=== PATIENT | male | born 1940 | race Caucasian/White ===

== ENCOUNTER 2019-06-03 15:24 | Emergency (ER) | payer MEDICARE, OTHER, SELFPAY ==
[2019-06-03 15:32] VITALS: BP 183/117; PULSE 77; RESP 16; TEMP 37.1; O2SAT 99; BMI 28.7
--- NOTE | 2019-06-03 15:48 | CT_ITS ---
WS: [id number] CT HEAD NONCONTRAST HISTORY: lightheaded TECHNIQUE: Contiguous axial imaging performed through the brain in 2.5 mm imaging. Bone and soft tiss ue windows. Sagittal and coronal reformats reviewed. All CT scans at [facility] use at ast one of these dose optimization techniques: automated exposure control; mA and/or kV adjustment pe r patient size (includes targeted exams where dose is matched to clinical indication); or iterative r econstruction. DLP: 788.23 mGy.cm COMPARISON: None available. No acute intracranial hemorrhage, midline shift or mass effect. Mild atrophy and mild chronic microvascular ischemic disease. Cantu-white matter differentiation is no rmal. There are a few small lacunar infarcts bilateral basal ganglia versus perivascular spaces. Ventricles: Normal size with no hydrocephalus. Paranasal sinuses: As visualized are clear. Mastoid air cells: Well pneumatized. Calvarium and scalp: Skull is intact with no soft tissue edema or swelling. CT/CT head wo con* [id number] IMPRESSION: 1. No acute intracranial hemorrhage. 2. 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
--- NOTE | 2019-06-03 15:48 | XR_ITS ---
WS: [id number] Portable AP upright chest, 06/03/2019 Clinical Data: sob Comparison: Portable chest, 01/05/2019. Findings: No nodules, masses or effusions are seen. The heart is normal. The pulmonary vascularity is not remarkable. No pneumonia or pneumothorax is present. The aortic arch shows mild calcification XR/XR chest 1V portable [id number] Impression: Atherosclerosis.
--- NOTE | 2019-06-03 15:48 | ECG_ITS ---
Measurements Intervals [place] Rate: 69 P: 52 AK: 165 QRS: 14 QRSD: 81 T: 45 QT: 372 QTc: 399 SINUS RHYTHM Compared to ECG 01/05/2019 18:31:02 No significant changes Electronically Signed On 06-04-2019 9:01:40 CDT by Deshaun Alva M.D. [id number]
--- NOTE | 2019-06-03 15:49 | ED_ITS ---
Documented by User: MINISTERIO Joel 06/03/19 16:20 HPI - Dizziness General: Chief Complaint: Dizziness Stated Complaint: DIZZY, TINGLING, SOB Time Seen by Provider: 06/03/19 15:41 History of Present Illness: HPI Narrative: Patient arrived by walking and complains of dizziness and shortness of breath. Patient states that she come home from [facility] walk around back to the house it down the chair and felt very dizzy and started have some shortness of breath. Not short of breath presently he said he is still dizzy when he moves his head quickly. Just lost his significant other this last week and he was up in [place] a lot did not sleep very well did not eat very well. Had a on Sunday patient denies anxiety or depression does have history of high blood pressure MD elicited complaint: lightheadedness Onset (ago): minute(s) Timing: sudden onset Severity: moderate Description: room spinning and lightheadedness Exacerbating factors: movement/ambulation Relieving factors: remaining still Associated symptoms: Reports no associated symptoms and short of breath; Denies chest pain, chills, headache(s), nausea, nasal congestion or vomiting Associated neuro symptoms: Reports no associated symptoms Review of Systems Const: Denies: fever, chills or body aches Eyes: Denies: change in vision or blurry vision ENMT: Denies: throat pain or nasal congestion Card: Reports: shortness of breath on exertion (He did x1 today did not have shortness of breath on exertion coming into the ER); Denies: chest pain Resp: Reports: shortness of breath; Denies: productive cough or non-productive cough GI: Denies: abdominal pain, nausea or vomiting : Denies: difficulty urinating Musc: Denies: extremity pain Skin/Breast: Denies: rash Neuro: Reports: dizziness and other (Tingling in extremities is gone now); Denies: headache Psych: Denies: anxiety or depression Rich/Lymph: Denies: easy bruising PFSH ED PFSH: Social History Smoking and tobacco status: former smoker Physical Exam Const: COMMON NORMALS: no apparent distress, average body habitus and oriented x3 HENMT: COMMON NORMALS: normocephalic HEAD & SCALP: normal to inspection and normocephalic FACE & SINUS: normal facial exam Eye: COMMON NORMALS: conjunctivae normal GENERAL EYE: normal appearance of both eyes CONJUNCTIVA: Yes conjunctivae normal Neck/C-Spine: COMMON NORMALS: no JVD Chest: COMMONS NORMALS: inspection of chest normal Resp: COMMON NORMALS: normal respiratory effort and clear to auscultation bilaterally AUSCULTATION: clear to auscultation bilaterally Cardio: COMMON NORMALS: no JVD, regular rate and regular rhythm RATE: regular rate RHYTHM: regular rhythm GI: COMMON NORMALS: normal to inspection, nondistended, normoactive bowel sounds Extremity: COMMON NORMALS: normal to inspection and full ROM Neuro: COMMON NORMALS: oriented x3 and CN's II-XII intact bilaterally Course Vital Signs: Vital signs: Vital Signs Temperature 98.8 F 06/03/19 15:32 Pulse Rate 77 06/03/19 21:38 Respiratory Rate 20 H 06/03/19 21:38 Blood Pressure 162/84 06/03/19 21:38 Pulse Oximetry 97 06/03/19 21:38 MDM - Dizziness Lab Data: Labs: Lab Results 06/03/19 06/03/19 06/03/19 Range/Units 16:28 16:28 16:28 WBC 7.0 (4.0-10.0) 10^3/ uL RBC 4.94 (4.1-5.3) 10^6/u L Hgb 14.7 (11.7-16.6) g/dL Hct 44.7 (42.0-52.0) % MCV 90.5 (80-94) fL MCH 29.8 (28.0-34.0) pg MCHC 32.9 (30.0-36.0) g/dL RDW 12.6 (12.1-15.1) % Plt Count 318 (130-400) 10^3/c mm MPV 9.4 (7.4-10.4) fL Neut % (Auto) 59.7 % Lymph % (Auto) 25.9 % [place] % (Auto) 8.7 % Eos % (Auto) 4.8 % Baso % (Auto) 0.6 % Neut # (Auto) 4.2 (1.8-7.7) 10^3/u L Lymph # (Auto) 1.8 (0.8-4.8) 10^3/u L [place] # (Auto) 0.6 (0.2-0.9) 10^3/u L Eos # (Auto) 0.3 (0.0-0.8) 10^3/u L Baso # (Auto) 0.0 (0.0-0.1) 10^3/u L Nucleated RBC % (a uto) 0 % Nucleated RBCs # 0.0 /100WBC D-Dimer (0-0.59) ug/mIFE U Sodium 132 L (136-145) mmol/L Potassium 4.4 (3.5-5.1) mmol/L Chloride 95 L (98-107) mmol/L Carbon Dioxide 26 (22-29) mmol/L Anion Gap 15.4 (5-19) BUN 11 (8-23) mg/dL Creatinine 1.2 (0.7-1.2) mg/dL Glucose 103 (65-115) mg/dL POC Glucose (70-110) mg/dL Calculated Osmolal ity 270 L (285-295) mOsm/k g Calcium 9.5 (8.5-10.5) mg/dL Total Bilirubin 0.5 (0.15-1.2) mg/dL AST 21 (0-40) U/L ALT 15 (0-41) U/L Alkaline Phosphata se 118 (40-130) IU/L Troponin T Gen 5 n g/L 15 (0-15) ng/mL Total Protein 7.3 (6.6-8.7) g/dL Albumin 4.1 (3.5-5.2) g/dL Globulin 3.2 (1.3-4.6) g/dL 06/03/19 06/03/19 Range/Units 16:28 18:59 WBC (4.0-10.0) 10^3/ uL RBC (4.1-5.3) 10^6/u L Hgb (11.7-16.6) g/dL Hct (42.0-52.0) % MCV (80-94) fL MCH (28.0-34.0) pg MCHC (30.0-36.0) g/dL RDW (12.1-15.1) % Plt Count (130-400) 10^3/c mm MPV (7.4-10.4) fL Neut % (Auto) % Lymph % (Auto) % [place] % (Auto) % Eos % (Auto) % Baso % (Auto) % Neut # (Auto) (1.8-7.7) 10^3/u L Lymph # (Auto) (0.8-4.8) 10^3/u L [place] # (Auto) (0.2-0.9) 10^3/u L Eos # (Auto) (0.0-0.8) 10^3/u L Baso # (Auto) (0.0-0.1) 10^3/u L Nucleated RBC % (a uto) % Nucleated RBCs # /100WBC D-Dimer 0.64 H (0-0.59) ug/mIFE U Sodium (136-145) mmol/L Potassium (3.5-5.1) mmol/L Chloride (98-107) mmol/L Carbon Dioxide (22-29) mmol/L Anion Gap (5-19) BUN (8-23) mg/dL Creatinine (0.7-1.2) mg/dL Glucose (65-115) mg/dL POC Glucose 99 (70-110) mg/dL Calculated Osmolal ity (285-295) mOsm/k g Calcium (8.5-10.5) mg/dL Total Bilirubin (0.15-1.2) mg/dL AST (0-40) U/L ALT (0-41) U/L Alkaline Phosphata se (40-130) IU/L Troponin T Gen 5 n g/L (0-15) ng/mL Total Protein (6.6-8.7) g/dL Albumin (3.5-5.2) g/dL Globulin (1.3-4.6) g/dL EKG Data^: EKG 1: EKG interpretation date: 06/03/19 EKG interpretation time: 16:07 Interpretation: DAVIDAR, 69bpm Discharge Plan Discharge Patient Disposition: Home, Self-Care Clinical Impression: Pneumonitis Condition: Stable Prescriptions: New doxycycline hyclate 100 mg tablet 100 mg PO Q12H 10 Days Qty: 20 RF: 0 No Action atorvastatin 80 mg tablet 40 mg PO DAILY RF: 0 clonidine HCl 0.1 mg tablet 0.1 mg PO Q2H PRN (Reason: Blood Pressure) RF: 0 cetirizine 10 mg tablet 10 mg PO DAILY PRN (Reason: Allergy Symptoms) RF: 0 triamcinolone acetonide 0.1 % cream 1 applic topical DAILY RF: 0 ranitidine HCl 150 mg tablet 150 mg PO BID RF: 0 Toprol XL 25 mg tablet extended release 24 hr 25 mg PO DAILY RF: 0 clobetasol 0.05 % ointment 1 applic TOPICAL BEDTIME RF: 0 fluticasone propionate 50 mcg/actuation spray,suspension 1 spray INTRANASAL DAILY PRN (Reason: Nasal Congestion) RF: 0 valsartan 160 mg tablet 80 mg PO DAILY RF: 0 Discharge Orders: Discharge Order (Routine); Ordered 06/03/19 Ordered By: Clare Mason Referrals: Steve Velasquez MD [Primary Care Provider] - Activity Restrictions/Additional Instructions: Return to the emergency department for worsening shortness of breath, continued dizziness/lightheadedness, feeling like you might pass out, chest pain, difficulty breathing, fevers greater than 100.4, or any other concerns you may have. Discharge Date/Time: 06/03/19 21:35 Coding Level of Care Code ED Foreign Language Instructor for Chg Fwd Exam Comprehensive Documented by User: QUIN Kamara 06/03/19 21:58 HPI - Dizziness General: Chief Complaint: Dizziness Stated Complaint: DIZZY, TINGLING, SOB Time Seen by Provider: 06/03/19 15:41 PFS ED PFSH: Social History Smoking and tobacco status: former smoker Course Vital Signs: Vital signs: Vital Signs Temperature 98.8 F 06/03/19 15:32 Pulse Rate 77 06/03/19 21:38 Respiratory Rate 20 H 06/03/19 21:38 Blood Pressure 162/84 06/03/19 21:38 Pulse Oximetry 97 06/03/19 21:38 MDM - Dizziness MDM Narrative: Medical decision making narrative: Care was received from MINISTERIO Oconnell. Patient is a 79-year-old male who presents to ED today with complaints of an episode of dizziness and shortness of breath while he was at home. Patient was at rest when both of these occurred. Upon my examination patient states the shortness of breath has improved but feels slightly dizzy. He was treated with a liter of fluids and meclizine which completely alleviated his dizziness. Upon ambulation trial he states he was not dizzy at all however did experience shortness of breath that he states was very abnormal. Patient had an age-appropriate d-dimer however seems very concerned about his shortness of breath. CXR was normal. We spoke in depth about proceeding with a CTA angiogram to definitively rule out PE-patient has decided he wishes to proceed with this. This was indeed negative for pulmonary embolus. Patient's lab work including troponin were normal. His head CT is normal. Initial EKG showed sinus rhythm. Repeat EKG showed sinus rhythm with occasional missed beat. Patient tells me he has had these previously and has seen cardiology previously for Holter monitor/event monitors. Spoke with Dr. Machado regarding EKG findings who feels patient is stable to follow-up with his PCP. CTA scan did show some pneumonitis-when asked patient does state he has had a cough over the past 2 days that is similar to when he has been diagnosed with bronchitis/pneumonia previously. His vital signs are completely stable. We will go ahead and place him on antibiotics and recommend he follow-up with his primary care provider as soon as possible. Return to ED precautions given. Lab Data: Labs: Lab Results 06/03/19 06/03/19 06/03/19 Range/Units 16:28 16:28 16:28 WBC 7.0 (4.0-10.0) 10^3/ uL RBC 4.94 (4.1-5.3) 10^6/u L Hgb 14.7 (11.7-16.6) g/dL Hct 44.7 (42.0-52.0) % MCV 90.5 (80-94) fL MCH 29.8 (28.0-34.0) pg MCHC 32.9 (30.0-36.0) g/dL RDW 12.6 (12.1-15.1) % Plt Count 318 (130-400) 10^3/c mm MPV 9.4 (7.4-10.4) fL Neut % (Auto) 59.7 % Lymph % (Auto) 25.9 % [place] % (Auto) 8.7 % Eos % (Auto) 4.8 % Baso % (Auto) 0.6 % Neut # (Auto) 4.2 (1.8-7.7) 10^3/u L Lymph # (Auto) 1.8 (0.8-4.8) 10^3/u L [place] # (Auto) 0.6 (0.2-0.9) 10^3/u L Eos # (Auto) 0.3 (0.0-0.8) 10^3/u L Baso # (Auto) 0.0 (0.0-0.1) 10^3/u L Nucleated RBC % (a uto) 0 % Nucleated RBCs # 0.0 /100WBC D-Dimer (0-0.59) ug/mIFE U Sodium 132 L (136-145) mmol/L Potassium 4.4 (3.5-5.1) mmol/L Chloride 95 L (98-107) mmol/L Carbon Dioxide 26 (22-29) mmol/L Anion Gap 15.4 (5-19) BUN 11 (8-23) mg/dL Creatinine 1.2 (0.7-1.2) mg/dL Glucose 103 (65-115) mg/dL POC Glucose (70-110) mg/dL Calculated Osmolal ity 270 L (285-295) mOsm/k g Calcium 9.5 (8.5-10.5) mg/dL Total Bilirubin 0.5 (0.15-1.2) mg/dL AST 21 (0-40) U/L ALT 15 (0-41) U/L Alkaline Phosphata se 118 (40-130) IU/L Troponin T Gen 5 n g/L 15 (0-15) ng/mL Total Protein 7.3 (6.6-8.7) g/dL Albumin 4.1 (3.5-5.2) g/dL Globulin 3.2 (1.3-4.6) g/dL 06/03/19 06/03/19 Range/Units 16:28 18:59 WBC (4.0-10.0) 10^3/ uL RBC (4.1-5.3) 10^6/u L Hgb (11.7-16.6) g/dL Hct (42.0-52.0) % MCV (80-94) fL MCH (28.0-34.0) pg MCHC (30.0-36.0) g/dL RDW (12.1-15.1) % Plt Count (130-400) 10^3/c mm MPV (7.4-10.4) fL Neut % (Auto) % Lymph % (Auto) % [place] % (Auto) % Eos % (Auto) % Baso % (Auto) % Neut # (Auto) (1.8-7.7) 10^3/u L Lymph # (Auto) (0.8-4.8) 10^3/u L [place] # (Auto) (0.2-0.9) 10^3/u L Eos # (Auto) (0.0-0.8) 10^3/u L Baso # (Auto) (0.0-0.1) 10^3/u L Nucleated RBC % (a uto) % Nucleated RBCs # /100WBC D-Dimer 0.64 H (0-0.59) ug/mIFE U Sodium (136-145) mmol/L Potassium (3.5-5.1) mmol/L Chloride (98-107) mmol/L Carbon Dioxide (22-29) mmol/L Anion Gap (5-19) BUN (8-23) mg/dL Creatinine (0.7-1.2) mg/dL Glucose (65-115) mg/dL POC Glucose 99 (70-110) mg/dL Calculated Osmolal ity (285-295) mOsm/k g Calcium (8.5-10.5) mg/dL Total Bilirubin (0.15-1.2) mg/dL AST (0-40) U/L ALT (0-41) U/L Alkaline Phosphata se (40-130) IU/L Troponin T Gen 5 n g/L (0-15) ng/mL Total Protein (6.6-8.7) g/dL Albumin (3.5-5.2) g/dL Globulin (1.3-4.6) g/dL Imaging Data^: CTA angio: Radiologist's impression: [address] [place] [address] CT Scan Report Signed Patient: Mukund Vivar Unit #: [id number] : [id number] Age/Sex: 79 / M ADM Date: 06/03/19 Loc: ER Room/Bed: Attending Dr: Ordering Provider/Ordering MD: Clare Mason Date of Service: 06/03/19 Procedure(s): CT angio chest PE protcl [id number] Accession Number(s): [id number] Report Number: [id number] PROCEDURE INFORMATION: Exam: CT Angiography Chest With Contrast Exam date and time: 06/03/2019 7:59 PM Age: 79 years old Clinical indication: Shortness of breath; Additional info: SOB TECHNIQUE: Imaging protocol: Computed tomographic angiography of the chest with intravenous contrast. 3D rendering: MIP and/or 3D reconstructed images were created by the technologist. Total DLP: 623.54 mGy-cm Radiation optimization: All CT scans at this facility use at least one of these dose optimization techniques: automated exposure control; mA and/or kV adjustment per patient size (includes targeted exams where dose is matched to clinical indication); or iterative reconstruction. Contrast material: VISI; Contrast volume: 95 ml; Contrast route: IV; COMPARISON: CR XR chest 1V portable [id number] 06/03/2019 3:59 PM FINDINGS: Pulmonary arteries: There is no pulmonary embolus. Aorta: Unremarkable. No aortic aneurysm. No aortic dissection. Lungs: There is some mild pneumonitis with a tree-in-bud appearance. There is also mild peribronchial thickening and ground-glass opacity in the lungs. This is greatest in the lower lobes. No dense lobar consolidation. There is a 3.5 mm ground-glass subpleural nodule right lower lobe image 36. Pleural space: Unremarkable. No pneumothorax. No pleural effusion. Heart: Unremarkable. No cardiomegaly. No pericardial effusion. Mediastinum: A moderate hiatal hernia is present. Gallbladder and bile ducts: Click left adrenalThere has been a cholecystectomy. Adrenals: There is a 1.8 cm indeterminate right adrenal nodule. Lymph nodes: Unremarkable. No enlarged lymph nodes. Bones/joints: Unremarkable. No acute fracture. Soft tissues: Unremarkable. Other findings: Calcified granulomas are noted. CT/CT angio chest PE protcl [id number] IMPRESSION: 1. There is no pulmonary embolus. 2. Mild pneumonitis and peribronchial thickening. 3. There is a 1.8 cm indeterminate right adrenal nodule. Consider 12 month follow-up adrenal CT. (Naima Rousseau, ACR White Paper, 2017) 4. There is a 3.5 mm ground-glass nodule right lower lobe.No routine follow-up is indicated. (Dionne et al., Fleischner Society, 2017) Radiation Dose CTDIVOL = (mGy): DLP = 623.54 (mGy-cm) Dictated By: Anjelica Lenz Signed By: Anjelica Lenz Signed Date/Time: 06/03/192101 DD/ 99 Discharge Plan Discharge Patient Disposition: Home, Self-Care Clinical Impression: Pneumonitis Condition: Stable Prescriptions: New doxycycline hyclate 100 mg tablet 100 mg PO Q12H 10 Days Qty: 20 RF: 0 No Action atorvastatin 80 mg tablet 40 mg PO DAILY RF: 0 clonidine HCl 0.1 mg tablet 0.1 mg PO Q2H PRN (Reason: Blood Pressure) RF: 0 cetirizine 10 mg tablet 10 mg PO DAILY PRN (Reason: Allergy Symptoms) RF: 0 triamcinolone acetonide 0.1 % cream 1 applic topical DAILY RF: 0 ranitidine HCl 150 mg tablet 150 mg PO BID RF: 0 Toprol XL 25 mg tablet extended release 24 hr 25 mg PO DAILY RF: 0 clobetasol 0.05 % ointment 1 applic TOPICAL BEDTIME RF: 0 fluticasone propionate 50 mcg/actuation spray,suspension 1 spray INTRANASAL DAILY PRN (Reason: Nasal Congestion) RF: 0 valsartan 160 mg tablet 80 mg PO DAILY RF: 0 Discharge Orders: Discharge Order (Routine); Ordered 06/03/19 Ordered By: Clare Mason Referrals: Steve Velasquez MD [Primary Care Provider] - Activity Restrictions/Additional Instructions: Return to the emergency department for worsening shortness of breath, continued dizziness/lightheadedness, feeling like you might pass out, chest pain, difficulty breathing, fevers greater than 100.4, or any other concerns you may have. Discharge Date/Time: 06/03/19 21:35 Coding Level of Care Code ED Foreign Language Instructor for Chg Fwd Exam Comprehensive
[2019-06-03 16:35] LABS: Basophils % 0.6 %; Eosinophils # 0.3 10^3/uL (0.0-0.8); Eosinophils % 4.8 %; Hematocrit 44.7 % (42.0-52.0); Hemoglobin 14.7 g/dL (11.7-16.6); Lymphocytes # 1.8 10^3/uL (0.8-4.8); Lymphocytes % 25.9 %; Mean Corpuscular HGB Conc 32.9 g/dL (30.0-36.0); Mean Corpuscular Hemoglobin 29.8 pg (28.0-34.0); Mean Corpuscular Volume 90.5 fL (80-94); Mean Platelet Volume 9.4 fL (7.4-10.4); Monocytes # 0.6 10^3/uL (0.2-0.9); Monocytes % 8.7 %; Neutrophils # 4.2 10^3/uL (1.8-7.7); Neutrophils % 59.7 %; Nucleated Red Blood Cells % 0 %; Platelet Count 318 10^3/cmm (130-400); Red Blood Count 4.94 10^6/uL (4.1-5.3); Red Cell Distribution Width 12.6 % (12.1-15.1)
[2019-06-03 16:48] LABS: D Dimer 0.64 ug/mIFEU (0-0.59)
[2019-06-03 16:53] LABS: Alanine Aminotransferase 15 U/L (0-41); Albumin Level 4.1 g/dL (3.5-5.2); Alkaline Phosphatase 118 IU/L (40-130); Anion Gap 15.4 (5-19); Aspartate Amino Transferase 21 U/L (0-40); Blood Urea Nitrogen 11 mg/dL (8-23); Calcium 9.5 mg/dL (8.5-10.5); Carbon Dioxide 26 mmol/L (22-29); Chloride 95 mmol/L (98-107); Globulin 3.2 g/dL (1.3-4.6); Glucose 103 mg/dL (65-115); Osmolality Calculated 270 mOsm/kg (285-295); Potassium 4.4 mmol/L (3.5-5.1); Sodium 132 mmol/L (136-145); Total Bilirubin 0.5 mg/dL (0.15-1.2); Total Protein 7.3 g/dL (6.6-8.7)
[2019-06-03 16:54] VITALS: BP 159/89; PULSE 56
--- NOTE | 2019-06-03 16:58 | PC.NURSE ---
laying 159/89 hr 56 sitting 176/96 hr 70 standing 189/85 hr 83
[2019-06-03 17:08] LABS: Troponin T (5th) Once 15 ng/mL (0-15)
[2019-06-03] MEDS: sodium chloride 0.9% 1,000 ML 999 ML IV (17:30)
[2019-06-03] MEDS: meclizine 25 mg tablet 50 MG PO (17:32)
--- NOTE | 2019-06-03 18:24 | PC.NURSE ---
patient ambulated well with walker no distress noted
[2019-06-03 18:26] VITALS: BP 163/82; PULSE 72; RESP 20; O2SAT 98
--- NOTE | 2019-06-03 18:56 | CTR_ITS ---
PROCEDURE INFORMATION: Exam: CT Angiography Chest With Contrast Exam date and time: 06/03/2019 7:59 PM Age: 79 years old Clinical indication: Shortness of breath; Additional info: SOB TECHNIQUE: Imaging protocol: Computed tomographic angiography of the chest with intravenous contrast. 3D rendering: MIP and/or 3D reconstructed images were created by the technologist. Total DLP: 623.54 mGy-cm Radiation optimization: All CT scans at this facility use at least one of these dose optimization techniques: automated exposure control; mA and/or kV adjustment per patient size (includes targeted exams where dose is matched to clinical indication); or iterative reconstruction. Contrast material: VISI; Contrast volume: 95 ml; Contrast route: IV; COMPARISON: CR XR chest 1V portable [id number] 06/03/2019 3:59 PM FINDINGS: Pulmonary arteries: There is no pulmonary embolus. Aorta: Unremarkable. No aortic aneurysm. No aortic dissection. Lungs: There is some mild pneumonitis with a tree-in-bud appearance. There is also mild peribronchial thickening and ground-glass opacity in the lungs. This is greatest in the lower lobes. No dense lobar consolidation. There is a 3.5 mm ground-glass subpleural nodule right lower lobe image 36. Pleural space: Unremarkable. No pneumothorax. No pleural effusion. Heart: Unremarkable. No cardiomegaly. No pericardial effusion. Mediastinum: A moderate hiatal hernia is present. Gallbladder and bile ducts: Click left adrenalThere has been a cholecystectomy. Adrenals: There is a 1.8 cm indeterminate right adrenal nodule. Lymph nodes: Unremarkable. No enlarged lymph nodes. Bones/joints: Unremarkable. No acute fracture. Soft tissues: Unremarkable. Other findings: Calcified granulomas are noted. CT/CT angio chest PE protcl [id number] IMPRESSION: 1. There is no pulmonary embolus. 2. Mild pneumonitis and peribronchial thickening. 3. There is a 1.8 cm indeterminate right adrenal nodule. Consider 12 month follow-up adrenal CT. (Naima Rousseau, ACR White Paper, 2017) 4. There is a 3.5 mm ground-glass nodule right lower lobe.No routine follow-up is indicated. (Dionne et al., Fleischner Society, 2017) Radiation Dose CTDIVOL = (mGy): DLP = 623.54 (mGy-cm)
[2019-06-03 19:02] LABS: Glucose Point of Care 99 mg/dL (70-110)
[2019-06-03] MEDS: iodixanol 320 mg/mL 100mL Btl 75 ML IV (20:15)
[2019-06-03] MEDS: metoprolol succinate ER (24 HR) 25 mg Tablet PO (21:17)
[2019-06-03 21:19] VITALS: BP 173/89; PULSE 79; RESP 18; O2SAT 97
[2019-06-03] MEDS: losartan 50 mg Tablet 25 MG PO (21:19)
[2019-06-03 21:38] VITALS: BP 162/84; PULSE 77; RESP 20; O2SAT 97
== END 2019-06-03 21:35 | disposition home or self-care (01) ==
PROVIDERS: Nurse Practitioner Family; Emergency Provider Physician Assistant; Family Provider Family Medicine; PCP Family Medicine
DX: J18.9 Pneumonia, unspecified organism (principal); Z87.891 Personal history of nicotine dependence
CPT/HCPCS: 12345; 36415; 36416; 70450; 71045; 71275; 80053; 82962; 84484; 85025; 85378; 93005; 96374; 99283; 99284; J7030; J8597; Q9967

== ENCOUNTER → 2019-12-24 13:51 | Outpatient (BNVA) | payer MEDICARE, OTHER, SELFPAY | PROVIDERS: Family Provider Family Medicine; PCP Family Medicine; Referring Provider Nurse Practitioner Family; Visit Provider Podiatrist Foot & Ankle Surgery | DX: M79.671 Pain in right foot (principal) | CPT/HCPCS: 73630 ==

== ENCOUNTER 2019-12-28 14:33 | Observation (INO) | payer MEDICARE, OTHER, SELFPAY ==
--- NOTE | 2019-12-28 14:41 | XRR_ITS ---
PROCEDURE INFORMATION: Exam: XR Chest, 1 View Exam date and time: 12/28/2019 2:42 PM Age: 79 years old Clinical indication: Chest pain; Additional info: Cp TECHNIQUE: Imaging protocol: XR of the chest Views: 1 view. COMPARISON: CR XR chest 1V portable [id number] 06/03/2019 3:59 PM FINDINGS: Lungs: Unremarkable. No consolidation. Pleural space: Unremarkable. No pleural effusion. No pneumothorax. Heart/Mediastinum: Unremarkable. No cardiomegaly. Vasculature: Calcification of the thoracic aorta and/or great vessels consistent with atherosclerotic vessel disease. Bones/joints: Moderate thoracic spondylosis. XR/XR chest 1V portable [id number] IMPRESSION: No acute findings.
--- NOTE | 2019-12-28 14:41 | ECG_ITS ---
[facility] Test Date: 2019-12-28 Pat Name: Mukund Vivar Department: Room: Gender: Male Tower Foreman: ELZBIETA : 1940 Requested By: Zee Santos Order Number: [id number] Alvaro MD: Del Mcintyre M.D. Measurements Intervals [place] Rate: 80 P: 48 SC: 178 QRS: 9 QRSD: 82 T: 53 QT: 362 QTc: 419 Interpretive Statements SINUS RHYTHM Compared to ECG 06/03/2019 16:06:10 No significant changes Electronically Signed On 12-28-2019 20:16:14 CDT by Del Mcintyre M.D. [email or web address] [id number]
[2019-12-28 14:49] VITALS: BP 189/96; PULSE 85; RESP 14; TEMP 37; O2SAT 97; BMI 28.7
[2019-12-28] MEDS: hyDRALAzine 20 mg/mL INJ 1 mL 10 MG IVP (15:25)
[2019-12-28 15:40] LABS: Basophils # 0.1 10^3/uL (0.0-0.1); Basophils % 0.6 %; Eosinophils # 0.3 10^3/uL (0.0-0.8); Eosinophils % 3.4 %; Hematocrit 45.5 % (42.0-52.0); Lymphocytes # 2.5 10^3/uL (0.8-4.8); Lymphocytes % 27.2 %; Mean Corpuscular Hemoglobin 30.1 pg (28.0-34.0); Mean Corpuscular Volume 91.2 fL (80-94); Monocytes # 0.7 10^3/uL (0.2-0.9); Monocytes % 7.3 %; Neutrophils # 5.68 10^3/uL (1.8-7.7); Neutrophils % 61.3 %; Nucleated Red Blood Cells % 0 %; Platelet Count 329 10^3/cmm (130-400); Red Blood Count 4.99 10^6/uL (4.1-5.3); White Blood Count 9.3 10^3/uL (4.0-10.0)
[2019-12-28 15:46] LABS: D Dimer 0.68 ug/mIFEU (0-0.59)
--- NOTE | 2019-12-28 15:47 | W.ED.CHESTPA ---
HPI - Chest Pain General: Chief Complaint: Chest Pain Stated Complaint: Sob/chest pain Time Seen by Provider: 12/28/19 15:04 Source: patient Mode of arrival: ambulatory Limitations: no limitations History of Present Illness: HPI narrative: 79-year-old male states over the last 2 days he has been having chest pain that is been intermittent along with some exertional dyspnea. He states his blood pressures been running high and was in the 200s here. He denies any pain currently at rest. He denies any history of heart issues. Denies any vomiting or diarrhea. Associated symptoms: Reports dyspnea; Deny abdominal pain, fever(s), nausea or vomiting Review of Systems Const: Denies: fever(s), chills, body aches or change in appetite Eyes: Denies: blurry vision or eye discomfort ENMT: Denies: throat pain or dental pain Card: Reports: chest pain Resp: Reports: dyspnea GI: Denies: abdominal pain, nausea, vomiting or diarrhea : Denies: dysuria Musc: Denies: neck pain or back pain Skin/Breast: Denies: rash Neuro: Denies: headache(s) Psych: Denies: depression Rich/Lymph: Denies: easy bruising All/Imm: Denies: urticaria PFSH ED PFSH: Medical History (Updated 12/29/19 @ 14:48 by Bubba Grier MD) Eczema GERD (gastroesophageal reflux disease) Hyperlipidemia Hypertension Hyponatremia Surgical History (Updated 12/28/19 @ 17:52 by Jonah King MD) History of appendectomy History of cholecystectomy History of knee surgery History of shoulder surgery Social History (Updated 12/28/19 @ 17:52 by Jonah King MD) Smoking and tobacco status: former smoker Alcohol intake: never Physical Exam Const: COMMON NORMALS: no acute distress, patient oriented x3 and healthy appearing HENMT: COMMON NORMALS: normocephalic and atraumatic HEAD & SCALP: normocephalic and atraumatic Eye: COMMON NORMALS: Equal, round and reactive pupils present and EOMs intact bilaterally PUPIL: Yes Equal, round and reactive pupils present Neck/C-Spine: COMMON NORMALS: full ROM and supple Chest: COMMONS NORMALS: normal inspection of the chest and normal palpation of entire chest wall Resp: COMMON NORMALS: normal respiratory effort, No retractions, No use of accessory muscles and clear to auscultation bilaterally AUSCULTATION: clear to auscultation bilaterally Cardio: COMMON NORMALS: regular rate, regular rhythm and No murmurs present (Cardio) RATE: regular rate RHYTHM: regular rhythm GI: COMMON NORMALS: Normal to inspection, nondistended, normoactive bowel sounds present, Soft to palpation, non-tender and no masses PALPATION: Yes Soft to palpation Extremity: COMMON NORMALS: normal to inspection and full ROM Neuro: COMMON NORMALS: patient oriented x3, moves all extremities and no focal motor deficits Psych: COMMON NORMALS: mental status grossly normal, Normal thought process present and cooperative THOUGHT PROCESS: Normal thought process present Skin: COMMON NORMALS: no rashes or lesions noted and no wounds GENERAL SKIN EXAM: no rashes or lesions noted Course Vital Signs: Vital signs: Vital Signs Temperature 98.2 F 12/29/19 15:38 Pulse Rate 76 12/29/19 15:38 Respiratory Rate 18 12/29/19 15:38 Blood Pressure 162/84 12/29/19 15:38 Pulse Oximetry 97 12/29/19 15:38 MDM - Chest Pain MDM Narrative: Medical decision making narrative: Patient presents here with chest pain. His initial troponin here is normal CT is normal as well. I spoke to hospitalist who is seen patient in the ER and will admit. Lab Data: Labs: Lab Results 12/28/19 12/28/19 12/28/19 Range/Units 15:12 15:12 15:12 WBC 9.3 (4.0-10.0) 10^3/ uL RBC 4.99 (4.1-5.3) 10^6/u L Hgb 15.0 (11.7-16.6) g/dL Hct 45.5 (42.0-52.0) % MCV 91.2 (80-94) fL MCH 30.1 (28.0-34.0) pg MCHC 33.0 (30.0-36.0) g/dL RDW 13.0 (12.1-15.1) % Plt Count 329 (130-400) 10^3/c mm MPV 10.0 (7.4-10.4) fL Neut % (Auto) 61.3 % Lymph % (Auto) 27.2 % Bowie % (Auto) 7.3 % Eos % (Auto) 3.4 % Baso % (Auto) 0.6 % Neut # (Auto) 5.68 (1.8-7.7) 10^3/u L Lymph # (Auto) 2.5 (0.8-4.8) 10^3/u L Bowie # (Auto) 0.7 (0.2-0.9) 10^3/u L Eos # (Auto) 0.3 (0.0-0.8) 10^3/u L Baso # (Auto) 0.1 (0.0-0.1) 10^3/u L Nucleated RBC % (a uto) 0 % Nucleated RBCs # 0.0 /100WBC D-Dimer (0-0.59) ug/mIFE U Sodium 135 L (136-145) mmol/L Potassium 4.1 (3.5-5.1) mmol/L Chloride 98 (98-107) mmol/L Carbon Dioxide 26 (22-29) mmol/L Anion Gap 15.1 (5-19) BUN 12 (8-23) mg/dL Creatinine 1.1 (0.7-1.2) mg/dL GFR Calculation Not Reportable Glucose 128 H (65-115) mg/dL Calculated Osmolal ity 281 L (285-295) mOsm/k g Calcium 9.5 (8.5-10.5) mg/dL Magnesium (1.7-2.3) mg/dL Total Bilirubin 0.4 (0.15-1.2) mg/dL AST 17 (0-40) U/L ALT 12 (0-41) U/L Alkaline Phosphata se 157 H (40-130) IU/L Troponin T Baselin e 11 (0-15) ng/L Troponin T 120 Min [place] (0-15) ng/L Delta Troponin T (0-10) ABS# NT-Pro-B Natriuret Pep (0-450) pg/mL Total Protein 7.0 (6.6-8.7) g/dL Albumin 4.2 (3.5-5.2) g/dL Globulin 2.8 (1.3-4.6) g/dL TSH (0.27-4.20) uIU/ mL 12/28/19 12/28/19 12/28/19 Range/Units 15:12 17:05 17:05 WBC (4.0-10.0) 10^3/ uL RBC (4.1-5.3) 10^6/u L Hgb (11.7-16.6) g/dL Hct (42.0-52.0) % MCV (80-94) fL MCH (28.0-34.0) pg MCHC (30.0-36.0) g/dL RDW (12.1-15.1) % Plt Count (130-400) 10^3/c mm MPV (7.4-10.4) fL Neut % (Auto) % Lymph % (Auto) % Bowie % (Auto) % Eos % (Auto) % Baso % (Auto) % Neut # (Auto) (1.8-7.7) 10^3/u L Lymph # (Auto) (0.8-4.8) 10^3/u L Bowie # (Auto) (0.2-0.9) 10^3/u L Eos # (Auto) (0.0-0.8) 10^3/u L Baso # (Auto) (0.0-0.1) 10^3/u L Nucleated RBC % (a uto) % Nucleated RBCs # /100WBC D-Dimer 0.68 H (0-0.59) ug/mIFE U Sodium (136-145) mmol/L Potassium (3.5-5.1) mmol/L Chloride (98-107) mmol/L Carbon Dioxide (22-29) mmol/L Anion Gap (5-19) BUN (8-23) mg/dL Creatinine (0.7-1.2) mg/dL GFR Calculation Glucose (65-115) mg/dL Calculated Osmolal ity (285-295) mOsm/k g Calcium (8.5-10.5) mg/dL Magnesium 2.0 (1.7-2.3) mg/dL Total Bilirubin (0.15-1.2) mg/dL AST (0-40) U/L ALT (0-41) U/L Alkaline Phosphata se (40-130) IU/L Troponin T Baselin e (0-15) ng/L Troponin T 120 Min [place] 13.01 (0-15) ng/L Delta Troponin T 2.01 (0-10) ABS# NT-Pro-B Natriuret Pep 325 (0-450) pg/mL Total Protein (6.6-8.7) g/dL Albumin (3.5-5.2) g/dL Globulin (1.3-4.6) g/dL TSH 2.83 (0.27-4.20) uIU/ mL Imaging Data^: CXR: Radiologist's impression: [address] [address] XRay Report Signed Patient: Mukund Vivar Unit #: [id number] : 1940 Age/Sex: 79 / M ADM Date: 12/28/19 Loc: ER Room/Bed: Attending Dr: Ordering Provider/Ordering MD: Zee Santos NP Date of Service: 12/28/19 Procedure(s): XR chest 1V portable [id number] Accession Number(s): [id number] Report Number: [id number] PROCEDURE INFORMATION: Exam: XR Chest, 1 View Exam date and time: 12/28/2019 2:42 PM Age: 79 years old Clinical indication: Chest pain; Additional info: Cp TECHNIQUE: Imaging protocol: XR of the chest Views: 1 view. COMPARISON: CR XR chest 1V portable [id number] 06/03/2019 3:59 PM FINDINGS: Lungs: Unremarkable. No consolidation. Pleural space: Unremarkable. No pleural effusion. No pneumothorax. Heart/Mediastinum: Unremarkable. No cardiomegaly. Vasculature: Calcification of the thoracic aorta and/or great vessels consistent with atherosclerotic vessel disease. Bones/joints: Moderate thoracic spondylosis. XR/XR chest 1V portable [id number] IMPRESSION: No acute findings. CT Chest: Radiologist's impression: [address] [address] [address] Scan Report Signed Patient: Mukund Vivar Unit #: [id number] : 1940 Age/Sex: 79 / M ADM Date: 12/28/19 Loc: ER Room/Bed: Attending Dr: Ordering Provider/Ordering MD: Julieth Machado MD Date of Service: 12/28/19 Procedure(s): CT angio chest PE protcl [id number] Accession Number(s): [id number] Report Number: [id number] PROCEDURE INFORMATION: Exam: CT Angiography Chest With Contrast Exam date and time: 12/28/2019 4:12 PM Age: 79 years old Clinical indication: Chest pain; Type not specified; Additional info: Cp TECHNIQUE: Imaging protocol: Computed tomographic angiography of the chest with intravenous contrast. 3D rendering (Not supervised by radiologist): MIP and/or 3D reconstructed images were created by the technologist. Radiation optimization: All CT scans at this facility use at least one of these dose optimization techniques: automated exposure control; mA and/or kV adjustment per patient size (includes targeted exams where dose is matched to clinical indication); or iterative reconstruction. Contrast material: OMNIPAQUE 350; Contrast volume: 95 ml; Contrast route: INTRAVENOUS (IV); COMPARISON: CT angio chest PE protcl [id number] 06/03/2019 8:27 PM RADIATION DOSE METRICS: Total DLP (mGy-cm): 596.63 FINDINGS: Pulmonary arteries: No pulmonary embolus or aortic dissection. Aorta: Unremarkable. No aortic aneurysm. No aortic dissection. Great vessels off aortic arch: Calcification of the thoracic aorta and/or great vessels consistent with atherosclerotic vessel disease. Lungs: Minimal nonspecific ground-glass opacities in the upper lobes. Pleural space: Unremarkable. No pneumothorax. No pleural effusion. Heart: Stable severe calcified coronary artery disease. Mediastinal space: Stable mild to moderate hiatal hernia. Lymph nodes: Unremarkable. No enlarged lymph nodes. Gallbladder and bile ducts: Stable cholecystectomy. Bones/joints: Severe thoracic spondylosis. Soft tissues: Unremarkable. CT/CT angio chest PE protcl [id number] IMPRESSION: 1. Stable mild to moderate hiatal hernia. 2. Stable severe calcified coronary artery disease. 3. No pulmonary embolus or aortic dissection. 4. Minimal nonspecific ground-glass opacities in the upper lobes. EKG Data^: EKG 1: Attestation: I personally reviewed and interpreted this EKG as follows: EKG interpretation date: 12/28/19 EKG interpretation time: 14:41 Interpretation: nsr hr [address] or t wave abnormalities qrs 82 qtc 398 Discharge Plan Discharge Patient Disposition: Admitted As Inpatient Admit Provider: Jonah King Clinical Impression: Chest pain Qualifiers: Chest pain type: unspecified Qualified Code(s): R07.9 - Chest pain, unspecified Condition: Stable Referrals: Del Mcintyre M.D [Physician] - 2 weeks (Please follow up with Dr. Mcintyre at [facility] January 12 at 3:30 pm. If you have any conflicts with this appointment, please call to reschedule.) Steve Velasquez MD [Primary Care Provider] - 4-7 days (Please follow up with Dr. Velasquez on January 04 at 9:20 am. If you have any conflicts with this appointment, please call to reschedule. Thank you.) Discharge Diet: Cardiac Discharge Activity: Increase activity as tolerated Patient Instructions: Chest Pain (DC), Chronic Hypertension (DC), Chest Pain Stoplight Additional Instructions: Continue to monitor your blood pressures as you have done so far. Measure at least twice daily, record values to bring to your appointment. Continue olmesartan daily (he could try to switch to taking it in the morning), metoprolol. Be aware that clonidine may sometimes cause rebound hypertension. He was started on a new medication of isosorbide mononitrate. If you notice that your blood pressure decreases significantly (systolic less than 100, diastolic less than 50), skip this medication. As discussed continue taking aspirin, cholesterol medicine, metoprolol. Stress test shows small spot on your heart which may not be getting good perfusion. This may be due to coronary disease, and if you are having recurrent symptoms of chest discomfort, or there are other cardiac concerns, may need additional evaluation in the future possibly by angiogram. In the meantime you are referred for follow-up with cardiology for additional monitoring and optimization of medications for coronary artery disease. Your heart is noted somewhat stiff with grade 1 diastolic dysfunction. Please discuss with your primary care doctor or loan reviewer if you have recurrence of irregular heartbeat in which case they may consider referral for longer cardiac monitoring with a 21-day monitor to exclude atrial fibrillation or other arrhythmia. Please continue mild to moderate activity unless you develop additional symptoms of chest pain, or have severe shortness of breath, lightheadedness, extreme fatigue, or other symptoms, in which case please return to ER for evaluation. Rapid coronavirus test was negative in ER, however, CT angiogram did show some nonspecific easiness in both upper lungs. This may be due to the very high blood pressure he had on presentation, however, if you experience any progressive shortness of breath, notice yourself breathing faster, any color changes with bluing of fingers or lips, any dizziness, fainting, in the setting of fever, chills, headache, nausea vomiting or diarrhea, please seek medical attention. Please discuss with your primary care doctor if you are getting dyspnea with exertion so they may consider whether additional assessment by pulmonary function test may be of benefit. Discharge Date/Time: 12/28/19 18:59 Coding Level of Care Code ED Test Boring Crew Chief for Chg Fwd Exam Comprehensive
[2019-12-28 15:50] LABS: Alanine Aminotransferase 12 U/L (0-41); Albumin Level 4.2 g/dL (3.5-5.2); Alkaline Phosphatase 157 IU/L (40-130); Anion Gap 15.1 (5-19); Aspartate Amino Transferase 17 U/L (0-40); Blood Urea Nitrogen 12 mg/dL (8-23); Calcium 9.5 mg/dL (8.5-10.5); Carbon Dioxide 26 mmol/L (22-29); Chloride 98 mmol/L (98-107); Globulin 2.8 g/dL (1.3-4.6); Glucose 128 mg/dL (65-115); Osmolality Calculated 281 mOsm/kg (285-295); Potassium 4.1 mmol/L (3.5-5.1); Sodium 135 mmol/L (136-145); Total Bilirubin 0.4 mg/dL (0.15-1.2)
[2019-12-28 15:52] LABS: Troponin(5th) Baseline 11 ng/L (0-15)
[2019-12-28] MEDS: aspirin 81 mg Chew Tablet 324 MG PO (16:05)
[2019-12-28] MEDS: iohexol 350 mg/mL 100 mL Btl IV (16:22)
[2019-12-28 17:41] LABS: Troponin 5 2HR 13.01 ng/L (0-15); Troponin 5 2HR Delta 2.01 ABS# (0-10)
--- NOTE | 2019-12-28 17:45 | PM.HP ---
Providers/Chief Complaint Primary Care Provider: Steve Velasquez MD Chief Complaint: Sob/chest pain History of Present Illness Mukund Vivar is a 79 year old male who presents with complaints of substernal chest discomfort without radiation. He reports he first noticed this yesterday. He is also been noticing some higher blood pressures than usual. He describes the chest discomfort as sharp, but also tight. It seems to come and go. He was initially worried this was secondary to push-ups he does, but he does some every day and this is not an unusual activity for him today it is been more severe but it is seem to let up after his CTA. He reports no fever, or cough. However, he has been short of breath with his chest discomfort today. No fever, nausea, severe reflux. No prior history of heart disease. No hemoptysis, or significant leg pain. Although he has clonidine as needed on his list, he reports he is only used this once before and usually his blood pressure is under good control. He denies any history of exposure to COVID, or personal history of COVID. He describes the discomfort seemed to be fairly bad when he was going up steps today, at which time he felt like his blood pressure was escalating as he felt nervous and if he was having a hot flash. He reports he also had some palpitations yesterday. He also relates that several weeks ago he was started on dupilumab for eczema Review of Systems General: Reports: 10 or more systems reviewed and unremarkable except in HPI and below Const: Denies: fever(s) Eyes: Denies: change in vision ENMT: Denies: throat pain Card: Reports: chest pain and palpitations Medications/Allergies Home Medications Medication Instructions Recorded Confirmed Last Taken Type atorvastatin 40 mg PO DAILY 06/03/19 12/24/19 06/02/19 History cetirizine 10 mg PO DAILY PRN 06/03/19 12/24/19 Unknown History clobetasol 1 applic TOPICAL BEDTIME 06/03/19 06/03/19 06/02/19 History clonidine HCl 0.1 mg PO Q2H PRN 06/03/19 06/03/19 Unknown History fluticasone propionate 1 spray INTRANASAL DAILY PRN 06/03/19 12/24/19 Unknown History metoprolol succinate [Toprol XL] 25 mg PO DAILY 06/03/19 06/03/19 Unknown History ranitidine HCl 150 mg PO BID 06/03/19 06/03/19 Unknown History triamcinolone acetonide 1 applic TOPICAL DAILY 06/03/19 06/03/19 Unknown History valsartan 80 mg PO DAILY 06/03/19 06/03/19 06/02/19 History methylprednisolone 4 mg tablets in See Rx Instructions PO PER PKG DIR 12/24/19 12/24/19 Unknown Rx a dose pack #21 each olmesartan 20 mg tablet 20 mg PO DAILY 12/24/19 12/24/19 Unknown History Allergies Allergy/AdvReac Type Severity Reaction Status Date / Time alfuzosin [From Uroxatral] Allergy ALGY-Rash Verified 12/24/19 13:36 celecoxib [From Celebrex] Allergy ALGY-Rash Verified 12/24/19 13:36 PFSH Acute PFSH: Medical History (Updated 12/28/19 @ 18:11 by Jonah King MD) Eczema GERD (gastroesophageal reflux disease) Hyperlipidemia Hypertension Hyponatremia Surgical History (Updated 12/28/19 @ 17:52 by Jonah King MD) History of appendectomy History of cholecystectomy History of knee surgery History of shoulder surgery Social History (Updated 12/28/19 @ 17:52 by Jonah King MD) Smoking and tobacco status: former smoker Alcohol intake: never Substance/Drug Use: never Supplemental PFSH Information: Reports mother during childbirth. Father of complications from pneumonia. No family history of diabetes, coronary disease. Vitals/I&O/Wt Last Vital Signs Temp 98.6 F 12/28/19 14:49 Pulse 85 12/28/19 14:49 Resp 14 12/28/19 14:49 BP 189/96 12/28/19 14:49 Pulse Ox 97 12/28/19 14:49 Weight last 48 hrs Weight 90.718 kg Physical Exam Narrative: EXAM NARRATIVE: General exam is a white male, somewhat nervous appearing, in no apparent distress HEENT: Pupils equally round. Oropharynx is clear. Neck is supple no lymphadenopathy or thyromegaly Cardiovascular regular rate and rhythm without murmur, no S3 or S4 Lungs clear no wheezing or crackles Abdomen is soft nontender with positive bowel sounds. No obvious organomegaly was deferred Extremities no cyanosis clubbing or edema. Slight edema right lower ankle but excellent posterior tibial pulse Skin no rash Neuro no obvious focal deficits Data : 12/28/19 15:12 12/28/19 15:12 Other data: Chest x-ray by my read no obvious infiltrate CTA read as calcified coronary vasculature, no pulmonary embolism. A few upper lobe opacities. Hiatal hernia EKG demonstrates normal sinus rhythm, normal axis, rate of 80 and no acute changes D-dimer elevated at 0.68 Alk phos 157 Troponin XI with repeat 13 Calcium 9.5 Rest of liver function tests normal A&P Assessment and plan (1) Chest pain: Has atypical and typical features. Associated with markedly elevated blood pressure. Observation to telemetry Place on aspirin Continue patient's statin Initiate Imdur Telemetry Morphine for breakthrough pain Check BNP, echocardiogram Serial troponins and EKGs Nuclear stress test tomorrow Metoprolol 25 mg twice daily Continue ARB Status: Acute Qualifiers: Chest pain type: unspecified Qualified Code(s): R07.9 - Chest pain, unspecified (2) Hypertension: Continue beta-maryann, increased dose slightly Continue ARB Hydralazine PRN Nitroglycerin ointment Status: Acute (3) Dyspnea: Check BNP Likely related to chest pain and markedly elevated blood pressure No history of exposure to COVID, fever, cough, congestion, or nausea. However, but does describe shortness of breath, has mildly elevated d-dimer, and a few groundglass opacities upper lungs. Will check a rapid COVID test Status: Acute Additional A&P Information Hyperlipidemia, continue statin History of hyponatremia, only slight decrease known History of GERD. Protonix 40 mg twice daily Full code Lovenox for DVT prophylaxis Attestations Medical Necessity Statement*: Will need less than 2 midnight stay for evaluation of chest discomfort, shortness of breath Time Spent in Patient Care: Greater than 35 minutes Coding Level of Care Code Acute Television Mechanic for g Fwd Diagnoses Chest pain R07.9 Chest pain type: unspecified Hypertension I10 Dyspnea R06.00
[2019-12-28] MEDS: nitroglycerin 1 gm/inch oint Pkt 1 INCH TOPICAL (18:15)
[2019-12-28] MEDS: labetalol 5 mg/mL SDV 20mL 10 MG IVP (18:15)
[2019-12-28 18:29] LABS: NT Pro B Type Natriuretic Pept 325 pg/mL (0-450); Thyroid Stimulating Hormone 2.83 uIU/mL (0.27-4.20)
[2019-12-28 18:45] VITALS: BP 158/80; PULSE 89; RESP 16; O2SAT 98
[2019-12-28 18:45] LABS: SARS Covid-2 Antigen Negative (Negative)
[2019-12-28 18:58] VITALS: BP 170/85; PULSE 89; RESP 18; TEMP 36.8; O2SAT 95
--- NOTE | 2019-12-28 18:58 | ECG_ITS ---
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 Interpretive Statements NAME OF STUDY: LEXISCAN SESTAMIBI STRESS TEST INDICATION: [Chest Pain] Procedure: At the baseline the blood pressure was 184/94 mmHg, with a heart rate of 76 bpm. The electrocardiogram showed normal sinus rhythm, normal axis with normal ST and T's. The Lexiscan was infused over the period Of 20 seconds. A total of 0.4 mg of Lexiscan was infused. The stress phase was continued for a total of 5 minutes. Heart rate at the end of stress phase was 93 bpm, with a blood pressure of 171/87 mmHg. The EKG at the peak infusion revealed sinus rhythm with no significant ST-T wave changes. Sestamibi was injected 20 seconds after Lexiscan infusion. Blood pressure at the end of recovery phase was 171/80 mmHg, with a heart rate of 90 bpm. EKG showed sinus rhythm without significant ST???T wave changes. Conclusion: 1. Normal EKG response to Lexiscan infusion. 2. No Lexiscan induced chest pain or cardiac arrhythmia. 3. Normal blood pressure and heart rate response. 4. Sestamibi/sestamibi perfusion scan pending; see separate report. Electronically Signed On 01-10-2020 19:52:59 CDT by Del Mcintyre M.D. [email or web address]
[2019-12-28] MEDS: pantoprazole DR 40 mg Tablet PO (19:23)
[2019-12-28] MEDS: metoprolol tartrate 25 mg Tablet PO (19:23)
[2019-12-28] MEDS: enoxaparin 40 mg/0.4 mL Syringe SUBCUT (19:24)
[2019-12-28 20:00] VITALS: BP 153/77; PULSE 86; RESP 20
[2019-12-28] MEDS: acetaminophen 325 mg Tablet 650 MG PO (20:10)
--- NOTE | 2019-12-28 20:33 | PC.NURSE ---
Admission: Patient arrived from ER at 1900 via stretcher in full clothes. Patient did not want to get into a gown at stated he was comfortable. Gown left in room for patient. Patient orientated to the room, call light within reach, and bed in low position. Patient placed on telemetry and vitals obtained. talked about patients lexiscan in the morning and NPO status, and plan for the evening.
[2019-12-28 20:49] VITALS: BP 153/77
[2019-12-28] MEDS: losartan 50 mg Tablet PO (20:49)
[2019-12-28 21:22] LABS: Troponin 5 6HR 16.47 ng/L (0-15); Troponin 5 6HR Delta 5.47 ng/L (0-12)
[2019-12-29] VITALS (7 sets, daily range): BP systolic 125–171; BP diastolic 71–89; PULSE 68–90; RESP 15–21; TEMP 36.4–36.8; O2SAT 95–98; BMI 30.4
--- NOTE | 2019-12-29 00:30 | PC.NURSE ---
Patient did not want his nitro paste. Patient states he had no chest pain and has a head ache. Educated patient on nitro paste. Patient verbalized understanding.
[2019-12-29 04:11] LABS: Basophils # 0.1 10^3/uL (0.0-0.1); Basophils % 0.7 %; Eosinophils # 0.3 10^3/uL (0.0-0.8); Hematocrit 43.5 % (42.0-52.0); Hemoglobin 14.1 g/dL (11.7-16.6); Lymphocytes % 22.5 %; Mean Corpuscular HGB Conc 32.4 g/dL (30.0-36.0); Mean Corpuscular Hemoglobin 29.9 pg (28.0-34.0); Mean Corpuscular Volume 92.2 fL (80-94); Mean Platelet Volume 10.3 fL (7.4-10.4); Monocytes # 0.8 10^3/uL (0.2-0.9); Monocytes % 9.1 %; Neutrophils % 64.4 %; Nucleated Red Blood Cells % 0 %; Platelet Count 274 10^3/cmm (130-400); Red Blood Count 4.72 10^6/uL (4.1-5.3); Red Cell Distribution Width 13.2 % (12.1-15.1); White Blood Count 8.9 10^3/uL (4.0-10.0)
[2019-12-29 04:32] LABS: Alanine Aminotransferase 10 U/L (0-41); Albumin Level 3.5 g/dL (3.5-5.2); Alkaline Phosphatase 128 IU/L (40-130); Aspartate Amino Transferase 15 U/L (0-40); Blood Urea Nitrogen 13 mg/dL (8-23); Calcium 9.1 mg/dL (8.5-10.5); Carbon Dioxide 23 mmol/L (22-29); Chloride 99 mmol/L (98-107); Globulin 2.7 g/dL (1.3-4.6); Glucose 102 mg/dL (65-115); Osmolality Calculated 276 mOsm/kg (285-295); Sodium 133 mmol/L (136-145); Total Bilirubin 0.6 mg/dL (0.15-1.2); Total Protein 6.2 g/dL (6.6-8.7)
[2019-12-29 04:37] LABS: Chol HDL Ratio 3.34 mg/dL (1.0-5.00); Cholesterol 127 mg/dL (0-200); HDL Cholesterol 38 mg/dL (60-100); LDL Cholesterol Calculated 69 mg/dL (50-129); LDL HDL Ratio 1.82 RATIO (0.00-3.22); Triglycerides 102 mg/dL (0-150)
[2019-12-29 04:40] LABS: Anion Gap 14.9 (5-19); Potassium 3.9 mmol/L (3.5-5.1)
[2019-12-29] MEDS: acetaminophen 325 mg Tablet 650 MG PO ×2 (05:50→12:16)
--- NOTE | 2019-12-29 05:56 | PC.NURSE ---
End of shift: Patient has had no complaints of chest pain. Patient does have a complaint of a intermittent headache. Tylenol provided. Patient vitals remain stable and he is alert and oriented.
--- NOTE | 2019-12-29 07:30 | PC.NURSE ---
Patient resting in bed at time of assessment. Patient denies any CP or SOB. No needs identified at this time. Nurse to continue to monitor.
[2019-12-29] MEDS: regadenoson 0.4 Mg/5 ml Syringe IVP (08:01)
--- NOTE | 2019-12-29 08:17 | PC.RESP ---
PATIENT DOES NOT HAVE A QUALIFYING HX OF LUNG DISEASE AND DOES NOT QUALIFY FOR PULMONARY REHAB AT THIS TIME.
[2019-12-29] MEDS: aspirin 81 mg EC Tablet PO (09:12)
[2019-12-29] MEDS: pantoprazole DR 40 mg Tablet PO (09:12)
[2019-12-29] MEDS: metoprolol tartrate 25 mg Tablet PO (09:12)
[2019-12-29] MEDS: atorvastatin 40 mg Tablet PO (09:13)
--- NOTE | 2019-12-29 13:00 | PC.NURSE ---
Patient refused nitro paste. Patient denies any CP at this time. Reports GHOSH at 08/02. Patient verbalizes understanding of indications for nitro paste. Tylenol administered for GHOSH. Nurse to continue to monitor.
--- NOTE | 2019-12-29 14:28 | P.DS_ITS ---
Discharge Providers Date of Admission: 12/28/19 17:45 Date of Discharge: December 29, 2019 Attending Provider at Admission: Jonah King MD Attending Provider at Discharge: Bubba Grier Primary Care Provider: Steve Velasquez MD Diagnoses at Discharge Discharge Diagnosis (1) Abnormal stress test: Status: Acute (2) Hypertension: Status: Acute (3) Chest pain: Status: Acute Qualifiers: Chest pain type: unspecified Qualified Code(s): R07.9 - Chest pain, unspecified (4) Hiatal hernia: Status: Acute (5) Ground glass opacity present on imaging of lung: Status: Acute (6) Dyspnea: Status: Acute Reason for Visit Reason for Visit: Sob/chest pain Hospital Course Hospital Course: Very pleasant 79-year-old gentleman with history of HTN, GERD, episodes of hyponatremia, eczema, was placed in observation after episode of chest discomfort and elevated blood pressure. He initially was thinking pain may have been related to musculoskeletal trauma after doing some push-ups and states that is kind of what it felt like, however, his blood pressure started rising, and discomfort persisted, so he came in for evaluation. He is very active at baseline, but occasionally does note running out of breath with exertion. Was assessed by CTA without finding of PE. With incidentally noted hiatal hernia. Had some nonspecific groundglass opacities noted in bilateral upper lobes. Rapid COVID-19 test was done and was negative. Discussed groundglass opacities with him. Nonspecific, and may have been related to his very high blood pressure on presentation. He does note some history of palpitations in the past and his blood pressure monitor noting irregular rhythm, however, status was assessed by Holter monitor class previously with finding of PACs. Was monitored on telemetry in the hospital, again with finding of PACs, no atrial fibrillation. His troponin was normal with minimal elevation to 13 on last 1. EKG normal. Echocardiogram with normal ejection fraction, grade 1 diastolic dysfunction. Blood pressures were noted elevated in the hospital, initially received hydralazine. At home takes olmesartan, takes metoprolol. Says was prescribed clonidine as needed by a overlay plastician perhaps a year ago, and is taking it perhaps twice since then, including 1 dose on Sunday due to rising blood pressure. Does not take it on a regular basis. Discussed with him concern regarding clonidine and rebound hypertension. He does say that at home his blood pressures mostly around well in 120s over 70s. While in the hospital blood pressures not infrequently up into 170s systolic, although currently somewhat better. He is currently not having any chest pain. This morning underwent stress test which showed a small area of perfusion defect in apical lateral wall with partial reversibility consistent with left circumflex distribution. Discussed results with him and his son, given he has no ongoing chest pain, there is no suggestion of acute DC we discussed continuation of medications for coronary disease which she is already on, optimization of risk factors including high blood pressure, and we will add isosorbide mononitrate to his medication regimen. He is encouraged to continue monitoring his blood pressures and follow-up with cardiology in office with regards to abnormal stress test for further optimization of medications and recommendations. Discussed with him in case he has any chest pain, worsening shortness of breath, or any other concerning symptoms to proceed to ER. Discussed also as he does get some dyspnea with prolonged exertion, if this persists may benefit from pulmonary function testing once he is doing better. Discussed also to bring up in case he has more episodes of palpitations or irregular heartbeat noted by his blood pressure monitor to discuss this with primary care provider or thin film technician for consideration of 21-day vehicle monitor technician. He is otherwise encouraged to maintain low-sodium diet, and continue healthy lifestyle with mild to moderate activity as he has been unless he becomes further symptomatic. Physical Exam Const: COMMON NORMALS: no acute distress and patient oriented x3 HENMT: COMMON NORMALS: oropharynx normal Neck/C-Spine: COMMON NORMALS: no JVD Resp: COMMON NORMALS: normal respiratory effort and clear to auscultation bilaterally AUSCULTATION: clear to auscultation bilaterally Cardio: COMMON NORMALS: no JVD, regular rhythm, S1 normal heart sound present, S2 normal heart sound present and No murmurs present (Cardio) RHYTHM: regular rhythm HEART SOUNDS: S1 normal heart sound present and S2 normal heart sound present GI: COMMON NORMALS: Normal to inspection, nondistended, normoactive bowel sounds present, Soft to palpation and non-tender PALPATION: Yes Soft to palpation Extremity: COMMON NORMALS: no joint enlargement and no pedal edema Neuro: COMMON NORMALS: patient oriented x3 and moves all extremities Skin: COMMON NORMALS: no rashes or lesions noted GENERAL SKIN EXAM: no rashes or lesions noted Discharge Data Data Completed and Pending: Completed Studies During Hospitalization Category Date Time Status CT angio chest PE protcl [id number] Urge nt Cat Scan 12/28/19 15:49 Completed Sestamibi Stress Test Request Routi ne Exams 12/28/19 18:58 Draft XR chest 1V carlos ble [id number] Stat Exams 12/28/19 14:41 Completed NM mary perf SPECT r/s* [id number] Routin e Nuc Med 12/29/19 18:58 Completed CV echo complete* [id number] Routine Ultrasound 12/29/19 18:58 Completed Labs from last 24 hours 12/29/19 12/29/19 12/29/19 03:35 03:35 03:35 WBC 8.9 RBC 4.72 Hgb 14.1 Hct 43.5 MCV 92.2 MCH 29.9 MCHC 32.4 RDW 13.2 Plt Count 274 MPV 10.3 Neut % (Auto) 64.4 Lymph % (Auto) 22.5 [facility] % (Auto) 9.1 Eos % (Auto) 3.0 Baso % (Auto) 0.7 Neut # (Auto) 5.70 Lymph # (Auto) 2.0 [facility] # (Auto) 0.8 Eos # (Auto) 0.3 Baso # (Auto) 0.1 Nucleated RBC % (a uto) 0 Nucleated RBCs # 0.0 D-Dimer Sodium 133 L Potassium 3.9 Chloride 99 Carbon Dioxide 23 Anion Gap 14.9 BUN 13 Creatinine 1.1 GFR Calculation Not Reportable Glucose 102 Calculated Osmolal ity 276 L Calcium 9.1 Magnesium Total Bilirubin 0.6 AST 15 ALT 10 Alkaline Phosphata se 128 Troponin T Baselin e Troponin T 120 Min cahto Delta Troponin T Troponin T Hi Sens 6Hr Troponin T Hi Sens 6Hr Delta NT-Pro-B Natriuret Pep Total Protein 6.2 L Albumin 3.5 Globulin 2.7 Triglycerides 102 Cholesterol 127 LDL Cholesterol, C alc 69 HDL Cholesterol 38 L LDL/HDL Ratio 1.82 Cholesterol/HDL Ra yuliana 3.34 TSH SARS-CoV-2 Ag (Rap id) 12/28/19 12/28/19 12/28/19 20:50 18:25 17:05 WBC RBC Hgb Hct MCV MCH MCHC RDW Plt Count MPV Neut % (Auto) Lymph % (Auto) [facility] % (Auto) Eos % (Auto) Baso % (Auto) Neut # (Auto) Lymph # (Auto) [facility] # (Auto) Eos # (Auto) Baso # (Auto) Nucleated RBC % (a uto) Nucleated RBCs # D-Dimer Sodium Potassium Chloride Carbon Dioxide Anion Gap BUN Creatinine GFR Calculation Glucose Calculated Osmolal ity Calcium Magnesium 2.0 Total Bilirubin AST ALT Alkaline Phosphata se Troponin T Baselin e Troponin T 120 Min cahto Delta Troponin T Troponin T Hi Sens 6Hr 16.47 H Troponin T Hi Sens 6Hr Delta 5.47 NT-Pro-B Natriuret Pep 325 Total Protein Albumin Globulin Triglycerides Cholesterol LDL Cholesterol, C alc HDL Cholesterol LDL/HDL Ratio Cholesterol/HDL Ra yuliana TSH 2.83 SARS-CoV-2 Ag (Rap id) Negative 12/28/19 12/28/19 12/28/19 17:05 15:12 15:12 WBC RBC Hgb Hct MCV MCH MCHC RDW Plt Count MPV Neut % (Auto) Lymph % (Auto) [facility] % (Auto) Eos % (Auto) Baso % (Auto) Neut # (Auto) Lymph # (Auto) [facility] # (Auto) Eos # (Auto) Baso # (Auto) Nucleated RBC % (a uto) Nucleated RBCs # D-Dimer 0.68 H Sodium Potassium Chloride Carbon Dioxide Anion Gap BUN Creatinine GFR Calculation Glucose Calculated Osmolal ity Calcium Magnesium Total Bilirubin AST ALT Alkaline Phosphata se Troponin T Baselin e 11 Troponin T 120 Min cahto 13.01 Delta Troponin T 2.01 Troponin T Hi Sens 6Hr Troponin T Hi Sens 6Hr Delta NT-Pro-B Natriuret Pep Total Protein Albumin Globulin Triglycerides Cholesterol LDL Cholesterol, C alc HDL Cholesterol LDL/HDL Ratio Cholesterol/HDL Ra yuliana TSH SARS-CoV-2 Ag (Rap id) 12/28/19 12/28/19 15:12 15:12 WBC 9.3 RBC 4.99 Hgb 15.0 Hct 45.5 MCV 91.2 MCH 30.1 MCHC 33.0 RDW 13.0 Plt Count 329 MPV 10.0 Neut % (Auto) 61.3 Lymph % (Auto) 27.2 [facility] % (Auto) 7.3 Eos % (Auto) 3.4 Baso % (Auto) 0.6 Neut # (Auto) 5.68 Lymph # (Auto) 2.5 [facility] # (Auto) 0.7 Eos # (Auto) 0.3 Baso # (Auto) 0.1 Nucleated RBC % (a uto) 0 Nucleated RBCs # 0.0 D-Dimer Sodium 135 L Potassium 4.1 Chloride 98 Carbon Dioxide 26 Anion Gap 15.1 BUN 12 Creatinine 1.1 GFR Calculation Not Reportable Glucose 128 H Calculated Osmolal ity 281 L Calcium 9.5 Magnesium Total Bilirubin 0.4 AST 17 ALT 12 Alkaline Phosphata se 157 H Troponin T Baselin e Troponin T 120 Min cahto Delta Troponin T Troponin T Hi Sens 6Hr Troponin T Hi Sens 6Hr Delta NT-Pro-B Natriuret Pep Total Protein 7.0 Albumin 4.2 Globulin 2.8 Triglycerides Cholesterol LDL Cholesterol, C alc HDL Cholesterol LDL/HDL Ratio Cholesterol/HDL Ra yuliana TSH SARS-CoV-2 Ag (Rap id) Vitals: Last Vital Signs Temp 98.0 F 12/29/19 10:34 Pulse 73 12/29/19 10:34 Resp 15 12/29/19 10:34 BP 128/78 12/29/19 10:34 Pulse Ox 98 12/29/19 10:34 Discharge Plan Discharge Patient Disposition: Home Condition: Stable Prescriptions: New nitroglycerin 0.4 mg Tablet, Sublingual 0.4 mg sublingual Q5M PRN (Reason: Chest Pain) Qty: 20 RF: 0 isosorbide mononitrate 10 mg tablet 10 mg PO BID Qty: 60 RF: 0 Continued olmesartan 20 mg tablet 20 mg PO DAILY RF: 0 atorvastatin 80 mg tablet 40 mg PO DAILY RF: 0 clonidine HCl 0.1 mg tablet 0.1 mg PO Q2H PRN (Reason: Blood Pressure) RF: 0 cetirizine 10 mg tablet 10 mg PO DAILY PRN (Reason: Allergy Symptoms) RF: 0 triamcinolone acetonide 0.1 % cream 1 applic topical DAILY RF: 0 metoprolol succinate [Toprol XL] 25 mg tablet extended release 24 hr 25 mg PO DAILY RF: 0 fluticasone propionate 50 mcg/actuation spray,suspension 1 spray INTRANASAL DAILY PRN (Reason: Nasal Congestion) RF: 0 omeprazole 20 mg Capsule,Delayed Release(Dr/Ec) 20 mg PO DAILY RF: 0 Aspirin Low Dose 81 mg Tablet,Delayed Release (Dr/Ec) 81 mg PO DAILY RF: 0 Dupixent Pen 300 mg/2 mL Pen Injector See Rx Instructions .ROUTE .COMPLEX RF: 0 Discharge Orders: Discharge Order (Routine); Ordered 12/29/19 Ordered By: Bubba Grier Referrals: Del Mcintyre M.D [Physician] - 2 weeks (Abnormal stress test.) Steve Velasquez MD [Primary Care Provider] - 4-7 days Discharge Diet: Cardiac Discharge Activity: Increase activity as tolerated Activity Restrictions/Additional Instructions: Continue to monitor your blood pressures as you have done so far. Measure at least twice daily, record values to bring to your appointment. Continue olmesartan daily (he could try to switch to taking it in the morning), metoprolol. Be aware that clonidine may sometimes cause rebound hypertension. He was started on a new medication of isosorbide mononitrate. If you notice that your blood pressure decreases significantly (systolic less than 100, diastolic less than 50), skip this medication. As discussed continue taking aspirin, cholesterol medicine, metoprolol. Stress test shows small spot on your heart which may not be getting good perfusion. This may be due to coronary disease, and if you are having recurrent symptoms of chest discomfort, or there are other cardiac concerns, may need additional evaluation in the future possibly by angiogram. In the meantime you are referred for follow-up with cardiology for additional monitoring and optimization of medications for coronary artery disease. Your heart is noted somewhat stiff with grade 1 diastolic dysfunction. Please discuss with your primary care doctor or thin film technician if you have recurrence of irregular heartbeat in which case they may consider referral for longer cardiac monitoring with a 21-day monitor to exclude atrial fibrillation or other arrhythmia. Please continue mild to moderate activity unless you develop additional symptoms of chest pain, or have severe shortness of breath, lightheadedness, extreme fatigue, or other symptoms, in which case please return to ER for evaluation. Rapid coronavirus test was negative in ER, however, CT angiogram did show some nonspecific easiness in both upper lungs. This may be due to the very high blood pressure he had on presentation, however, if you experience any progressive shortness of breath, notice yourself breathing faster, any color changes with bluing of fingers or lips, any dizziness, fainting, in the setting of fever, chills, headache, nausea vomiting or diarrhea, please seek medical attention. Please discuss with your primary care doctor if you are getting dyspnea with exertion so they may consider whether additional assessment by pulmonary function test may be of benefit. Discharge Attestations Time Spent in Discharge Care*: greater than 30 min Quality Metrics Clinical Quality Measures During this hospital stay, did patient experience: None Coding Level of Care Code Acute Group Account Director for Chg Fwd Diagnoses Abnormal stress test R94.39 Hypertension I10 Chest pain R07.9 Chest pain type: unspecified Hiatal hernia K44.9 Ground glass opacity present on imaging of lung R91.8 Dyspnea R06.00
--- NOTE | 2019-12-29 15:33 | PC.NURSE ---
Discharge instructions given per the physician's instructions. Patient verbalized understanding of information and did not have any further questions. Patient dressed self. IV has been removed. Patient son contacted for transportation.
--- NOTE | 2019-12-29 18:58 | USCV_ITS ---
GhazalaMukund Age: 79 Gender: M : 1940 Exam Date: 12/29/2019 07:09 Ordering Phys: Jonah King MD Technologist: [place] Crawley Exam Location: [facility] [place] Indication: CHEST PAIN BP: 165 / 89 HR: 74 Rhythm: Sinus Technical Quality: Adequate MEASUREMENTS (Male / Female) Normal Values 2D ECHO LV Diastolic Diameter PLAX 2.8 cm 4.2 - 5.9 / 3.9 - 5.3 cm LV Systolic Diameter PLAX 2.1 cm LV Chamber Size 3.3 cm IVS Diastolic Thickness 1.6 cm 0.6 - 1.0 / 0.6 - 0.9 cm IVS Systolic Thickness 1.5 cm LVPW Diastolic Thickness 1.7 cm 0.6 - 1.0 / 0.6 - 0.9 cm LVPW Systolic Thickness 2.9 cm RV Chamber Size 2.8 cm LVOT Diameter 2.1 cm LV Ejection Fraction 2D Teich 49.1 % LV Ejection Fraction MOD 2C 76.9 % LV Ejection Fraction 2C AL 76.9 % LA Diameter 4.0 cm LA Width 3.0 cm LA Height 4.6 cm RA Width 4.4 cm RA Height 3.9 cm M-MODE LV Diastolic Diameter MM 4.1 cm 4.2 - 5.9 / 3.9 - 5.3 cm LV Systolic Diameter MM 3.1 cm LV Ejection Fraction MM Teich 48.6 % IVS Diastolic Thickness MM 1.1 cm 0.6 - 1.0 / 0.6 - 0.9 cm IVS Systolic Thickness MM 1.1 cm LVPW Diastolic Thickness MM 1.1 cm 0.6 - 1.0 / 0.6 - 0.9 cm LVPW Systolic Thickness MM 1.6 cm Aortic Annulus Diameter 3.2 cm LA Ao Ratio MM 1.3 MV E Point Septal Separation 1.1 cm DOPPLER AV Peak Velocity 97.0 cm/s LVOT Peak Velocity 99.0 cm/s AV Area Cont Eq vti 3.1 cm squared AV Area Cont Eq pk 3.4 cm squared MV Area PHT 3.5 cm squared Mitral E to A Ratio 0.8 MV E' Velocity 44.5 cm/s Mitral E to MV E' Ratio 8.9 Mitral E to LV E' Lateral Ratio 9.0 Mitral E to LV E' Septal Ratio 8.8 TR Peak Velocity 181.7 cm/s TR Peak Gradient 13.2 mmHg TV Peak E Velocity 48.0 cm/s Right Atrial Pressure 3.0 mmHg Pulmonary Artery Systolic Pressu 16.2 mmHg PV Peak Velocity 81.0 cm/s RV Acceleration Time 0.1 s RV Ejection Time 0.3 s RV AcT/ET 0.3 FINDINGS Left Ventricle Normal left ventricular size and systolic function, EF 73 %. No regional wall motion abnormalities. Grade I/IV diastolic dysfunction (abnormal relaxation filling pattern), normal to mildly elevated filling pressures. Right Ventricle Normal size and ejection fraction Right Atrium Possibly of normal size Left Atrium Possibly of normal size Mitral Valve No gross abnormalities noted Aortic Valve No gross abnormalities noted Tricuspid Valve Tricuspid valve not well visualized. Pulmonic Valve Pulmonic valve not well visualized. Pericardium No pericardial effusion. Aorta Normal aortic annulus size. CONCLUSIONS Normal left ventricular size and systolic function, EF 73 %. No regional wall motion abnormalities. Grade I/IV diastolic dysfunction (abnormal relaxation filling pattern), normal to mildly elevated filling pressures. Possibly of normal chamber sizes. Aortic and mitral valves, possibly of normal morphology. Technically difficult study because of the poor ultrasonic window. Dr Stuart Banks MD FAC (Electronically Signed) Final Date: 29 December 2019 09:55 S
--- NOTE | 2019-12-29 18:58 | NMCV_ITS ---
NM mary perf SPECT r/s* [id number] Mukund Vivar Age: 79 Gender: M : 1940 Exam Date: 12/29/2019 06:50 Ordering Phys: Jonah King MD Technologist: MYRON Amato Exam Location: [facility] Indications: SOB CHEST PAIN STRESS TEST Please see separate stress test report in [facility] for full findings IMAGE PROTOCOL Rest/Stress 1 Lexiscan Day Radiopharmaceutical Dose (mCi) Administration Site Administered by Rest: Tc-99m 10.8 IV MYRON Tan Sestamibi Stress:Tc-99m 32.9 IV MYRON Tan Sestamibi Rest: 29-Dec-2019 60 Discovery 630 Stress: 29-Dec-2019 30 Discovery 630 0.4mg Lexiscan. Images obtained in supine and prone position. SPECT RESULTS Technical Quality: Excellent Raw Data Analysis: Normal Image Corrections: No attenuation or motion correction applied Summed Stress Score: 3 Summed Rest Score: 2 Summed Difference Score: 1 PERFUSION FINDINGS Small area of perfusion defect with partial reversibility is noted in the apical lateral wall. Rest of the myocardium has normal prefusion. FUNCTIONAL RESULTS (calculated via Gated SPECT) Stress Image LV EF (%): 88 Stress EDV (mL):50 TID: 1.05 Stress ESV (mL):6 FUNCTIONAL FINDINGS: There is normal left ventricular systolic function. IMPRESSIONS 1) Small area of perfusion defect is noted in the apical lateral wall with partial reversibility. This is consistent with the Left circumflex artery territory 2) Normal LV systolic function is noted Del Mcintyre MD (Electronically Signed) Final Date: 29 December 2019 11:12 S
== END 2019-12-29 15:38 | disposition home or self-care (01) ==
LOC: ER 17:48 → CSU 18:26
PROVIDERS: Emergency Medicine; Registered Nurse; Admitting Provider Internal Medicine; PCP Family Medicine; Visit Provider Internal Medicine
DX: R07.89 Other chest pain (principal); I10 Essential (primary) hypertension; R06.00 Dyspnea, unspecified; E78.5 Hyperlipidemia, unspecified; E87.1 Hypo-osmolality and hyponatremia; K21.9 Gastro-esophageal reflux disease without esophagitis; Z87.891 Personal history of nicotine dependence; R94.39 Abnormal result of other cardiovascular function study; K44.9 Diaphragmatic hernia without obstruction or gangrene; L30.9 Dermatitis, unspecified; R91.8 Other nonspecific abnormal finding of lung field
CPT/HCPCS: 12345; 36415; 71045; 71275; 78452; 80053; 80061; 83735; 83880; 84443; 84484; 85025; 85378; 87426; 93005; 93017; 93306; 96372; 96374; 96375; 99283; 99285; A9500; G0378; J0360; J1650; J2785; J3490; Q9967

== ENCOUNTER 2020-01-01 16:02 | Observation (INO) | payer MEDICARE, OTHER, SELFPAY ==
[2020-01-01] VITALS (8 sets, daily range): BP systolic 121–213; BP diastolic 58–103; PULSE 75–84; RESP 18–27; TEMP 36.6–36.8; O2SAT 95–99; BMI 27.9
--- NOTE | 2020-01-01 16:05 | ECG_ITS ---
[facility] Test Date: 2020-01-01 Pat Name: Mukund Vivar Department: Room: Gender: Male Distribution Analyst: TS : 1940 Requested By: Julieth Machado Order Number: [id number] Alvaro MD: Stuart Banks M.D. Measurements Intervals Zullinger Rate: 79 P: 49 WA: 170 QRS: 16 QRSD: 93 T: 45 QT: 368 QTc: 422 Interpretive Statements SINUS RHYTHM Compared to ECG 12/28/2019 14:41:32 No significant changes Electronically Signed On 01-01-2020 21:39:57 CDT by Stuart Banks M.D. [id number] f
--- NOTE | 2020-01-01 16:05 | XR_ITS ---
WS: [id number] XR chest 1V portable [id number] REASON FOR EXAM: cp FINDINGS: The chest is unchanged compared to previous examination of 12/28/2019. No active pulmonary parenchymal or pleural disease is seen. There is calcified granulomatous change in both hemithoraces. There is mild tortuosity of the thoracic aorta. The heart size is normal. XR/XR chest 1V portable [id number] IMPRESSION: IMPRESSION: No acute abnormality.
--- NOTE | 2020-01-01 16:50 | W.ED.CHESTPA ---
HPI - Chest Pain General: Chief Complaint: Chest Pain Stated Complaint: Chest Pain Time Seen by Provider: 01/01/20 16:50 History of Present Illness: HPI narrative: 79-year-old male presents emergency room with complaint of chest pain. Chest pain started around 3:00 today with a tightness across his chest. Patient was in the hospital over this past weekend and had a stress test and was discharged home. Since going home he has had shortness of breath lightheadedness has been a little bit unsteady but he denies any vertigo-like symptoms he played golf yesterday without any evidence of chest pain or shortness of breath or dizziness. He makes a comment that he has had some palpitations also notes that eating seems to lower his blood pressure. MD complaint: chest discomfort Onset (ago): hour(s) Timing of current episode: episodic Prior episodes: Yes Onset: during rest Pain location: left chest Pain radiation: none Severity: moderate Quality: heaviness Relieving factors: rest Exacerbating factors: exertion Associated symptoms: Reports dyspnea and palpitations; Deny abdominal pain, diaphoresis, fever(s), leg edema, nausea, sense of impending doom, syncope or vomiting Treatment prior to arrival: none Review of Systems Const: Denies: fever(s) or diaphoresis ENMT: Denies: throat pain, ear or mastoid pain, nasal discharge or nasal congestion Card: Reports: palpitations; Denies: syncope Resp: Reports: dyspnea GI: Denies: abdominal pain, nausea or vomiting : Denies: flank pain, dysuria, urinary frequency or urinary urgency Skin/Breast: Denies: rash or pruritus PFSH ED PFSH: Medical History Dyspnea Eczema GERD (gastroesophageal reflux disease) Hyperlipidemia Hypertension Hyponatremia Surgical History History of appendectomy History of cholecystectomy History of knee surgery History of shoulder surgery Family History Mother Maternal complication related to childbirth Social History Smoking and tobacco status: former smoker Alcohol intake: never Physical Exam Const: COMMON NORMALS: no acute distress GENERAL APPEARANCE: cooperative and comfortable ORIENTATION/CONSCIOUSNESS: Yes awake, Yes oriented to person, Yes oriented to place and Yes oriented to time HENMT: COMMON NORMALS: normocephalic, atraumatic and hearing grossly normal bilaterally HEAD & SCALP: normocephalic and atraumatic Neck/C-Spine: COMMON NORMALS: no JVD Resp: COMMON NORMALS: normal respiratory effort, No retractions, No use of accessory muscles and clear to auscultation bilaterally AUSCULTATION: clear to auscultation bilaterally Cardio: COMMON NORMALS: no JVD, regular rate, regular rhythm and No murmurs present (Cardio) RATE: regular rate RHYTHM: regular rhythm GI: COMMON NORMALS: Soft to palpation and No hepatosplenomegaly present AUSCULTATION: Yes normoactive bowel sounds PALPATION: Yes Soft to palpation, No Tenderness to palpation present (GI), No Guarding due to palpation present (GI) and Yes No hepatosplenomegaly present Extremity: COMMON NORMALS: normal to inspection, capillary refill normal, no clubbing, cyanosis or edema, no calf tenderness and no pedal edema Neuro: SENSORIUM/ORIENTATION: Yes oriented to person, Yes oriented to place and Yes oriented to time Skin: COMMON NORMALS: no rashes or lesions noted GENERAL SKIN EXAM: no rashes or lesions noted Course Vital Signs: Vital signs: Vital Signs Temperature 98.0 F 01/02/20 16:00 Pulse Rate 80 01/02/20 18:29 Respiratory Rate 19 H 01/02/20 18:29 Blood Pressure 109/71 01/02/20 18:29 Pulse Oximetry 97 01/02/20 18:29 MDM - Chest Pain Lab Data: Labs: Lab Results 01/01/20 01/01/20 01/01/20 Range/Units 16:35 16:35 16:35 WBC 10.5 H (4.0-10.0) 10^3/ uL RBC 4.95 (4.1-5.3) 10^6/u L Hgb 15.3 (11.7-16.6) g/dL Hct 45.3 (42.0-52.0) % MCV 91.5 (80-94) fL MCH 30.9 (28.0-34.0) pg MCHC 33.8 (30.0-36.0) g/dL RDW 13.1 (12.1-15.1) % Plt Count 349 (130-400) 10^3/c mm MPV 9.8 (7.4-10.4) fL Neut % (Auto) 63.5 % Lymph % (Auto) 23.3 % [place] % (Auto) 8.4 % Eos % (Auto) 3.7 % Baso % (Auto) 0.7 % Neut # (Auto) 6.66 (1.8-7.7) 10^3/u L Lymph # (Auto) 2.4 (0.8-4.8) 10^3/u L [place] # (Auto) 0.9 (0.2-0.9) 10^3/u L Eos # (Auto) 0.4 (0.0-0.8) 10^3/u L Baso # (Auto) 0.1 (0.0-0.1) 10^3/u L Nucleated RBC % (a uto) 0 % Nucleated RBCs # 0.0 /100WBC Sodium 136 (136-145) mmol/L Potassium 4.7 (3.5-5.1) mmol/L Chloride 98 (98-107) mmol/L Carbon Dioxide 27 (22-29) mmol/L Anion Gap 15.7 (5-19) BUN 19 (8-23) mg/dL Creatinine 1.3 H (0.7-1.2) mg/dL GFR Calculation Not Reportable Glucose 111 (65-115) mg/dL Calculated Osmolal ity 285 (285-295) mOsm/k g Calcium 10.1 (8.5-10.5) mg/dL Total Bilirubin 0.7 (0.15-1.2) mg/dL AST 23 (0-40) U/L ALT 15 (0-41) U/L Alkaline Phosphata se 137 H (40-130) IU/L Troponin T Baselin e 13 (0-15) ng/L NT-Pro-B Natriuret Pep (0-450) pg/mL Total Protein 7.0 (6.6-8.7) g/dL Albumin 4.4 (3.5-5.2) g/dL Globulin 2.6 (1.3-4.6) g/dL TSH (0.27-4.20) uIU/ mL 01/01/20 01/01/20 Range/Units 16:35 16:35 WBC (4.0-10.0) 10^3/ uL RBC (4.1-5.3) 10^6/u L Hgb (11.7-16.6) g/dL Hct (42.0-52.0) % MCV (80-94) fL MCH (28.0-34.0) pg MCHC (30.0-36.0) g/dL RDW (12.1-15.1) % Plt Count (130-400) 10^3/c mm MPV (7.4-10.4) fL Neut % (Auto) % Lymph % (Auto) % [place] % (Auto) % Eos % (Auto) % Baso % (Auto) % Neut # (Auto) (1.8-7.7) 10^3/u L Lymph # (Auto) (0.8-4.8) 10^3/u L [place] # (Auto) (0.2-0.9) 10^3/u L Eos # (Auto) (0.0-0.8) 10^3/u L Baso # (Auto) (0.0-0.1) 10^3/u L Nucleated RBC % (a uto) % Nucleated RBCs # /100WBC Sodium (136-145) mmol/L Potassium (3.5-5.1) mmol/L Chloride (98-107) mmol/L Carbon Dioxide (22-29) mmol/L Anion Gap (5-19) BUN (8-23) mg/dL Creatinine (0.7-1.2) mg/dL GFR Calculation Glucose (65-115) mg/dL Calculated Osmolal ity (285-295) mOsm/k g Calcium (8.5-10.5) mg/dL Total Bilirubin (0.15-1.2) mg/dL AST (0-40) U/L ALT (0-41) U/L Alkaline Phosphata se (40-130) IU/L Troponin T Baselin e (0-15) ng/L NT-Pro-B Natriuret Pep 313 (0-450) pg/mL Total Protein (6.6-8.7) g/dL Albumin (3.5-5.2) g/dL Globulin (1.3-4.6) g/dL TSH 3.32 (0.27-4.20) uIU/ mL Discharge Plan Discharge Patient Disposition: Admitted As Inpatient Admit Provider: Bubba Grier Clinical Impression: Chest pain, Hypertension, Hyperlipidemia Condition: Stable Interventions: ED Discharge Assessment Last Done: 01/01/20 22:05 ED Charges Last Done: 01/01/20 22:05 Discharge Date/Time: 01/01/20 21:10 Coding Level of Care Code ED Associate Professor Of Medicine for Celso Garcia
[2020-01-01 16:56] LABS: Basophils # 0.1 10^3/uL (0.0-0.1); Basophils % 0.7 %; Eosinophils # 0.4 10^3/uL (0.0-0.8); Eosinophils % 3.7 %; Hematocrit 45.3 % (42.0-52.0); Hemoglobin 15.3 g/dL (11.7-16.6); Lymphocytes # 2.4 10^3/uL (0.8-4.8); Lymphocytes % 23.3 %; Mean Corpuscular HGB Conc 33.8 g/dL (30.0-36.0); Mean Corpuscular Hemoglobin 30.9 pg (28.0-34.0); Mean Corpuscular Volume 91.5 fL (80-94); Mean Platelet Volume 9.8 fL (7.4-10.4); Monocytes # 0.9 10^3/uL (0.2-0.9); Monocytes % 8.4 %; Neutrophils # 6.66 10^3/uL (1.8-7.7); Neutrophils % 63.5 %; Nucleated Red Blood Cells % 0 %; Platelet Count 349 10^3/cmm (130-400); Red Blood Count 4.95 10^6/uL (4.1-5.3); Red Cell Distribution Width 13.1 % (12.1-15.1); White Blood Count 10.5 10^3/uL (4.0-10.0)
[2020-01-01 17:16] LABS: Alanine Aminotransferase 15 U/L (0-41); Albumin Level 4.4 g/dL (3.5-5.2); Alkaline Phosphatase 137 IU/L (40-130); Anion Gap 15.7 (5-19); Aspartate Amino Transferase 23 U/L (0-40); Blood Urea Nitrogen 19 mg/dL (8-23); Calcium 10.1 mg/dL (8.5-10.5); Carbon Dioxide 27 mmol/L (22-29); Chloride 98 mmol/L (98-107); Globulin 2.6 g/dL (1.3-4.6); Glucose 111 mg/dL (65-115); Osmolality Calculated 285 mOsm/kg (285-295); Potassium 4.7 mmol/L (3.5-5.1); Sodium 136 mmol/L (136-145); Total Bilirubin 0.7 mg/dL (0.15-1.2)
[2020-01-01 17:20] LABS: Troponin(5th) Baseline 13 ng/L (0-15)
--- NOTE | 2020-01-01 18:05 | ECG_ITS ---
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 Measurements Intervals [place] Rate: 79 P: 49 CT: 170 QRS: 16 QRSD: 93 T: 45 QT: 368 QTc: 422 Interpretive Statements SINUS RHYTHM Compared to ECG 12/28/2019 14:41:32 No significant changes Electronically Signed On 01-01-2020 21:43:20 CDT by Stuart Banks M.D. [id number] f
[2020-01-01 19:35] LABS: Troponin 5 2HR 12.06 ng/L (0-15)
--- NOTE | 2020-01-01 19:38 | PC.NURSE ---
during pt rounds, Dr Babin in consult with pt and family. VO obtained for IV insertion, 10mg labetalol IVP, then ok to transfer to CSU bed
[2020-01-01 19:48] LABS: Troponin 5 2HR Delta -0.94 ABS# (0-10)
--- NOTE | 2020-01-01 19:59 | PM.HP ---
Providers/Chief Complaint Admitting Physician: Bubba Grier Primary Care Provider: Steve Velasquez MD Chief Complaint: Chest Pain History of Present Illness Mukund Vivar is a 79 year old male with a past medical history of prostate cancer status post radiation therapy, hypertension, hyperlipidemia, previous smoker recent hospital admission for chest pain who presents to [facility] due to chest pain. Patient states that he was recently discharged from [facility] for chest pain, he was discharged on medical management, aspirin, Imdur, he did not take the Imdur because he was suffering low blood pressures. He followed up with his primary care provider at this morning, had elevated blood pressures, his metoprolol was increased to 37.5 once daily, and he was advised to take Imdur 10 mg. However this evening, patient was changing the air filter, was squatting, when he started to develop chest pain, describes it as an achy pain, over the right side of the chest radiating to the left, no radiation to the neck, no radiation to the back, associate with shortness of breath, lightheadedness, mild nausea, no vomiting, episode lasted a few seconds, he sat down, and symptoms abated. However symptoms would return intermittently over the next few minutes, only lasting a few seconds to a few minutes. Patient checks his blood pressure, and his blood pressure went as high as 200/100, so he is called his son who advised him to come to the emergency room. Review of Systems Const: Denies: fever(s), chills, fatigue or malaise Eyes: Denies: change in vision or blurry vision ENMT: Denies: nasal congestion Card: Reports: chest pain and edema Resp: Reports: dyspnea; Denies: productive cough, non-productive cough or wheezing GI: Denies: abdominal pain, nausea, vomiting, hematemesis, diarrhea, constipation, hematochezia or melena : Denies: flank pain, difficulty urinating, dysuria or urinary frequency Musc: Denies: neck pain or back pain Skin/Breast: Denies: rash Neuro: Denies: headache(s), dizziness or vertigo Psych: Denies: anxiety or depression Endo: Denies: polyuria or polydipsia Medications/Allergies Home Medications Medication Instructions Recorded Confirmed Last Taken Type atorvastatin 40 mg PO DAILY 03/01/1201/01/20 01/01/20 History cetirizine 10 mg PO DAILY PRN 06/03/19 01/01/20 01/01/20 History clonidine HCl 0.1 mg PO Q2H PRN 06/03/19 01/01/20 12/28/19 12:00 History fluticasone propionate 1 spray INTRANASAL DAILY PRN 06/03/19 01/01/20 12/28/19 07:00 History metoprolol succinate [Toprol XL] 25 mg PO DAILY 06/03/19 01/01/20 12/31/19 History triamcinolone acetonide 1 applic TOPICAL DAILY 06/03/19 01/01/20 Unknown History olmesartan 20 mg tablet 20 mg PO DAILY 12/24/19 01/01/20 01/01/20 History aspirin [Aspirin Low Dose] 81 mg PO DAILY 12/28/19 01/01/20 12/31/19 History omeprazole 20 mg PO DAILY 12/28/19 01/01/20 01/01/20 History isosorbide mononitrate 10 mg PO BID #60 tab 12/29/19 01/01/20 01/01/20 Rx 0.5 tab nitroglycerin 0.4 mg SUBLINGUAL Q5M PRN #20 tab 12/29/19 01/01/20 Unknown Rx Allergies Allergy/AdvReac Type Severity Reaction Status Date / Time alfuzosin [From Uroxatral] Allergy ALGY-Rash Verified 12/24/19 13:36 celecoxib [From Celebrex] Allergy ALGY-Rash Verified 12/24/19 13:36 Additional Medication Information Metoprolol 37.5 daily Imdur 10 mg daily PFSH Acute PFSH: Medical History Dyspnea Eczema GERD (gastroesophageal reflux disease) Hyperlipidemia Hypertension Hyponatremia Surgical History History of appendectomy History of cholecystectomy History of knee surgery History of shoulder surgery Family History Mother Maternal complication related to childbirth Social History (Updated 01/01/20 @ 20:04 by Shad Raza MD) Smoking and tobacco status: former smoker Alcohol intake: never Substance/Drug Use: never Vitals/I&O/Wt Last Vital Signs Temp 98.3 F 01/01/20 16:20 Pulse 81 01/01/20 19:32 Resp 20 H 01/01/20 19:32 BP 213/103 01/01/20 19:32 Pulse Ox 96 01/01/20 19:32 Weight last 48 hrs Weight 88.451 kg Data : 01/01/20 16:35 01/01/20 16:35 A&P Assessment and plan (1) Chest pain: -Chest pain does sound cardiac in nature -Creatinine 1.3 -Cardiac stress test showed 12/29/2019 Small area of perfusion defect is noted in the apical lateral wall with partial reversibility. This is consistent with the Left circumflex artery territory -echo 12/2019 Normal left ventricular size and systolic function, EF 73 %. No regional wall motion abnormalities. Grade I/IV diastolic dysfunction (abnormal relaxation filling pattern), normal to mildly elevated filling pressures. Possibly of normal chamber sizes. Aortic and mitral valves, possibly of normal morphology. Technically difficult study because of the poor ultrasonic window. -CT angiogram of the chest showed stable severe calcified coronary artery disease -Baseline troponin XIII, 120-minute 12.06, delta 0.94 -Showed no acute ST-T wave changes on EKG PLAN: -Admit to cardiac stepdown unit -Aspirin, statin, Imdur -Therapeutic Lovenox -Telemetry monitoring -Serial EKGs, serial troponins, monitor for chest pain -Dr. Mcintyre from cardiology has been consulted, n.p.o. midnight, plans on cardiac catheterization tomorrow morning Status: Acute (2) Prostate cancer: -Status post radiation therapy Status: Acute (3) Ground glass opacity present on imaging of lung: Status: Acute (4) Abnormal stress test: Status: Acute (5) Hiatal hernia: Status: Acute (6) Hyperlipidemia: Status: Acute (7) Hypertension: Status: Acute (8) Hypertensive urgency: -Patient's blood pressures did fluctuate in the ER, systolics did get in the high 200s, diastolics in the high 100s -Currently in the 170s over 90s -We will give labetalol 10 mg once -Continue home medications -Monitor blood pressures closely Status: Acute (9) DEIDRE (acute kidney injury): -Creatinine 1.3 Status: Acute Attestations Medical Necessity Statement*: Patient requires hospitalization, outpatient with observation, for chest pain Coding Level of Care Code Acute Slurry Tank Tender for [facility] Fwd Diagnoses Chest pain R07.9 Prostate cancer C61 Ground glass opacity present on imaging of lung R91.8 Abnormal stress test R94.39 Hiatal hernia K44.9 Hyperlipidemia E78.5 Hypertension I10 Hypertensive urgency I16.0 DEIDRE (acute kidney injury) N17.9
[2020-01-01] MEDS: labetalol 5 mg/mL SDV 20mL 10 MG IVP (20:00)
[2020-01-01] MEDS: metoprolol tartrate 25 mg Tablet PO (20:45)
[2020-01-01] MEDS: enoxaparin 100 mg/mL Syringe 90 MG SUBCUT (20:46)
[2020-01-01] MEDS: acetaminophen 325 mg Tablet 650 MG PO (20:46)
[2020-01-01] MEDS: sodium chloride 0.9% 1,000 ML 75 ML IV (20:46)
[2020-01-01 21:10] LABS: NT Pro B Type Natriuretic Pept 313 pg/mL (0-450)
[2020-01-01 21:11] LABS: Thyroid Stimulating Hormone 3.32 uIU/mL (0.27-4.20)
--- NOTE | 2020-01-01 21:48 | PC.NURSE ---
Patient arrived to the floor from the ED after report was received via phone. Patient is alert and oriented and ambulatory. Patient complains of headache, but no chest pain. VSS. Patient has been oriented to his room and has call light within reach. Will monitor.
--- NOTE | 2020-01-01 22:05 | ECG_ITS ---
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 Measurements Intervals [place] Rate: 88 P: 123 MD: 167 QRS: 175 QRSD: 77 T: 140 QT: 349 QTc: 424 Interpretive Statements Sinus rhythm with lead reversal in 1 and aVL POSSIBLE RIGHT VENTRICULAR HYPERTROPHY [SOME/ALL OF: PROMINENT R IN V1, LATE TRANSITION, RAD, DIONNE, SSS] Compared to ECG 01/01/2020 16:11:24 Lead reversal is present Electronically Signed On 01-01-2020 21:44:42 CDT by Stuart Banks M.D. [id number]
[2020-01-01 23:25] LABS: Troponin 5 6HR 11.06 ng/L (0-15)
[2020-01-01 23:26] LABS: Troponin 5 6HR Delta -1.94 ng/L (0-12)
[2020-01-02] VITALS (36 sets, daily range): BP systolic 76–145; BP diastolic 53–81; PULSE 59–88; RESP 13–25; TEMP 36.6–36.9; O2SAT 94–98
[2020-01-02 04:06] LABS: Basophils # 0.1 10^3/uL (0.0-0.1); Basophils % 0.8 %; Eosinophils # 0.3 10^3/uL (0.0-0.8); Eosinophils % 4.6 %; Hematocrit 41.2 % (42.0-52.0); Hemoglobin 13.3 g/dL (11.7-16.6); Lymphocytes # 2.1 10^3/uL (0.8-4.8); Lymphocytes % 28.8 %; Mean Corpuscular HGB Conc 32.3 g/dL (30.0-36.0); Mean Corpuscular Hemoglobin 29.8 pg (28.0-34.0); Mean Corpuscular Volume 92.4 fL (80-94); Mean Platelet Volume 10.1 fL (7.4-10.4); Monocytes # 0.7 10^3/uL (0.2-0.9); Monocytes % 9.3 %; Neutrophils # 4.13 10^3/uL (1.8-7.7); Nucleated Red Blood Cells % 0 %; Platelet Count 295 10^3/cmm (130-400); Red Blood Count 4.46 10^6/uL (4.1-5.3); Red Cell Distribution Width 13.2 % (12.1-15.1); White Blood Count 7.4 10^3/uL (4.0-10.0)
[2020-01-02 04:20] LABS: INR 1.15 (0.8-1.2)
[2020-01-02 04:28] LABS: Cholesterol 102 mg/dL (0-200); HDL Cholesterol 34 mg/dL (60-100); LDL Cholesterol Calculated 52 mg/dL (50-129); LDL HDL Ratio 1.53 RATIO (0.00-3.22); Magnesium 2.1 mg/dL (1.7-2.3); Phosphorus 4.6 mg/dL (2.5-4.5); Triglycerides 82 mg/dL (0-150)
[2020-01-02 04:29] LABS: Alanine Aminotransferase 12 U/L (0-41); Albumin Level 3.4 g/dL (3.5-5.2); Alkaline Phosphatase 106 IU/L (40-130); Anion Gap 13.6 (5-19); Aspartate Amino Transferase 19 U/L (0-40); Blood Urea Nitrogen 19 mg/dL (8-23); Calcium 8.8 mg/dL (8.5-10.5); Carbon Dioxide 23 mmol/L (22-29); Chloride 102 mmol/L (98-107); Globulin 2.6 g/dL (1.3-4.6); Glucose 86 mg/dL (65-115); Osmolality Calculated 282 mOsm/kg (285-295); Potassium 3.6 mmol/L (3.5-5.1); Sodium 135 mmol/L (136-145); Total Bilirubin 0.5 mg/dL (0.15-1.2)
--- NOTE | 2020-01-02 05:30 | PC.NURSE ---
Patient has no complaints at this time. Will monitor.
--- NOTE | 2020-01-02 07:28 | PC.NURSE ---
Patient is refusing a hospital gown.
--- NOTE | 2020-01-02 08:20 | PM.PN ---
Subjective Subjective: Interval history: Patient awake in bed at time of exam today. He denies any current chest pain. Did have some dyspnea on exertion when walking to the bathroom. Vitals/I&O/Wt Last Vital Signs Temp 97.9 F 01/02/20 08:00 Pulse 72 01/02/20 08:00 Resp 19 H 01/02/20 08:00 BP 140/76 01/02/20 08:00 Pulse Ox 97 01/02/20 08:00 01/01/20 01/02/20 01/02/20 22:59 06:59 14:59 Intake Total 300 / 300 Balance 300 / 300 Weight last 48 hrs Weight 88.451 kg Physical Exam Const: COMMON NORMALS: patient oriented x3 and alert GENERAL APPEARANCE: cooperative ORIENTATION/CONSCIOUSNESS: Yes awake, Yes oriented to person, Yes oriented to place and Yes oriented to time HENMT: COMMON NORMALS: normocephalic and atraumatic HEAD & SCALP: normocephalic and atraumatic Eye: COMMON NORMALS: Equal, round and reactive pupils present PUPIL: Yes Equal, round and reactive pupils present Neck/C-Spine: COMMON NORMALS: supple GENERAL: Yes normal visual inspection Resp: COMMON NORMALS: normal respiratory effort and clear to auscultation bilaterally EFFORT & INSPECTION: Yes able to speak in complete sentences AUSCULTATION: clear to auscultation bilaterally, no rhonchi and no wheezes Cardio: COMMON NORMALS: regular rate, regular rhythm and No murmurs present (Cardio) RATE: regular rate RHYTHM: regular rhythm GI: COMMON NORMALS: Soft to palpation and non-tender INSPECTION: No abdominal distension AUSCULTATION: Yes normoactive bowel sounds PALPATION: Yes Soft to palpation Extremity: COMMON NORMALS: no clubbing, cyanosis or edema and no calf tenderness Neuro: COMMON NORMALS: patient oriented x3, CN's II-XII intact bilaterally, moves all extremities and no focal motor deficits SENSORIUM/ORIENTATION: Yes alert, Yes oriented to person, Yes oriented to place and Yes oriented to time SPEECH: speech normal Psych: COMMON NORMALS: mental status grossly normal and cooperative Data : 01/02/20 02:55 01/02/20 02:55 A&P Assessment and plan (1) Chest pain: Dr. Mcintyre, cardiology consulted. Appreciate recommendations and assistance in patient's care NPO for cardiac cath today around noon Cardiac stress test 12/29/2019 Small area of perfusion defect is noted in the apical lateral wall with partial reversibility. This is consistent with the Left circumflex artery territory Aspirin, statin, Imdur, Therapeutic Lovenox Status: Acute (2) Ground glass opacity present on imaging of lung: Incidental finding on CT scan of the chest last admission, bilateral mild groundglass opacification in the upper lungs, COVID testing negative on 12/28/2019. Patient denies any symptoms or exposure COVID-19 Status: Acute (3) Abnormal stress test: Cardiology consulted, plan for cardiac cath today Status: Acute (4) Hyperlipidemia: Continue atorvastatin 40 mg daily Status: Acute (5) Hypertension: Blood pressure well controlled at this time Imdur 10 mg twice daily Losartan 50 mg daily Metoprolol 25 mg twice daily Labetalol as needed Status: Acute (6) Hypertensive urgency: Resolved Status: Acute Additional A&P Information Elevated creatinine: When reviewing patient's chart it appears some chronic kidney disease, baseline creatinine around 1.2 Diet: Nothing by mouth for cardiac cath DVT prophylaxis: No pharmacologic prophylaxis as patient is on treatment dose Lovenox as noted above CODE STATUS: Full code Attestations Medical Necessity Statement*: Patient requires further hospitalization due to chest pain with plan cardiac cath today Coding Level of Care Code Acute 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
--- NOTE | 2020-01-02 08:42 | P.CONIM_ITS ---
Providers/Reason For Consult Consulting Physican/Specialty*: Del Mcintyre MD/cardiology Reason for Consult*: Chest pain/abnormal stress test Attending Physician: Tiffanie Velásquez DO Primary Care Provider: Steve Velasquez MD History of Present Illness History of Present Illness Mukund Vivar is a 79 year old male with past medical history of hypertension and hyperlipidemia was admitted with elevated blood pressure and chest pain. Patient had a recent admission earlier this week because of similar complaints. He underwent nuclear stress test that had shown apical lateral wall partially reversible defect. Medical management was planned at the time. He was started on Imdur and beta-maryann. According to patient yesterday he started feeling dizzy along with chest pressure across the chest. No radiation to the neck or the arms. Had intermittent episodes of chest discomfort since yesterday morning. His blood pressure was significantly high at home and was around 190 mmHg. He had some more chest pain in the ER. No prior cardiac history. Troponins did not trend up. EKG did not show significant ischemic changes. Review of Systems Narrative: CONSTITUTIONAL: No fever chills weight loss or gain or night sweats. [] HEENT: Normocephalic, atraumatic.[] RESPIRATORY: No cough, sputum, hemoptysis or wheezing.[] CARDIOVASCULAR: No shortness of breath, chest pain, PND, orthopnea, lower extremity edema, presyncope or syncope. [] GI: no nausea vomiting diarrhea. [] CHIEF II DISPATCHER: No numbness, tingling, weakness or loss of function in any part of the body. [] MUSCULOSKELETAL: No knee or joint pain or rashes. [] Meds/Allergies Home Medications and Allergies Home Medications Medication Instructions Recorded Confirmed Last Taken Type atorvastatin 40 mg PO DAILY 06/03/19 01/01/20 01/01/20 History cetirizine 10 mg PO DAILY PRN 06/03/19 01/01/20 01/01/20 History clonidine HCl 0.1 mg PO Q2H PRN 06/03/19 01/01/20 12/28/19 12:00 History fluticasone propionate 1 spray INTRANASAL DAILY PRN 06/03/19 01/01/20 12/28/19 07:00 History metoprolol succinate [Toprol XL] 25 mg PO DAILY 06/03/19 01/01/20 12/31/19 History triamcinolone acetonide 1 applic TOPICAL DAILY 06/03/19 01/01/20 Unknown History olmesartan 20 mg tablet 20 mg PO DAILY 12/24/19 01/01/20 01/01/20 History aspirin [Aspirin Low Dose] 81 mg PO DAILY 12/28/19 01/01/20 12/31/19 History omeprazole 20 mg PO DAILY 12/28/19 01/01/20 01/01/20 History isosorbide mononitrate 10 mg PO BID #60 tab 12/29/19 01/01/20 01/01/20 Rx 0.5 tab nitroglycerin 0.4 mg SUBLINGUAL Q5M PRN #20 tab 12/29/19 01/01/20 Unknown Rx Allergies Allergy/AdvReac Type Severity Reaction Status Date / Time alfuzosin [From Uroxatral] Allergy ALGY-Rash Verified 01/01/20 20:23 celecoxib [From Celebrex] Allergy ALGY-Rash Verified 01/01/20 20:23 Current Medications Current Medications Generic Name Dose Route Start Last Admin Trade Name Freq PRN Reason Stop Dose Admin Acetaminophen 650 mg 01/01/20 20:13 01/01/20 20:46 Tylenol PO 650 mg Q6H PRN Administration Mild/Mod Pain Or Temp >/= 101 Enoxaparin Sodium 90 mg 01/01/20 21:00 01/01/20 20:46 Lovenox 1 mg/kg (90 mg) 90 mg SUBCUT Administration Q12H JAYME Sodium Chloride 1,000 mls @ 75 mls/hr 01/01/20 20:13 01/01/20 20:46 Sodium Chloride 0.9% IV 75 mls/hr .[id number] JAYME Administration Metoprolol Tartrate 25 mg 01/01/20 20:13 01/01/20 20:45 Lopressor PO 25 mg BID JAYME Administration PFSH Acute PFSH: Medical History Dyspnea Eczema GERD (gastroesophageal reflux disease) Hyperlipidemia Hypertension Hyponatremia Surgical History History of appendectomy History of cholecystectomy History of knee surgery History of shoulder surgery Family History Mother Maternal complication related to childbirth Social History Smoking and tobacco status: former smoker Alcohol intake: never Substance/Drug Use: never Vitals/I&O/Wt Last Vital Signs Temp 97.9 F 01/02/20 08:00 Pulse 72 01/02/20 08:00 Resp 19 H 01/02/20 08:00 BP 140/76 01/02/20 08:00 Pulse Ox 97 01/02/20 08:00 01/01/20 01/02/20 01/02/20 22:59 06:59 14:59 Intake Total 300 / 300 Balance 300 / 300 Weight last 48 hrs Weight 195 lb Physical Exam Narrative: EXAM NARRATIVE: GENERAL: Patient is alert, awake and oriented x3. [] NECK: No jugular vein distension. [] HEENT: No cyanosis. No icterus. No pallor. [] HEART: Regular S1 and S2. No murmur, rub or gallop. [] LUNGS: Clear to auscultate bilaterally. [] ABDOMEN: Soft, nontender and nondistended. Positive bowel sounds. No guarding, rebound or tenderness. [] CENTRAL NERVOUS SYSTEM: Grossly nonfocal. [] EXTREMITIES: Lower extremities with no edema bilaterally. Pulses palpable in the lower extremities, both dorsalis pedis and posterior tibial. [] A&P Assessment and plan (1) Chest pain: Status: Acute (2) Hypertension: Status: Acute (3) Hyperlipidemia: Status: Acute (4) Abnormal stress test: Status: Acute Patient has recurrent admissions with chest pain. On last admission stress test had small area of abnormality. He did not tolerate Imdur well at home. Says his blood pressure dropped. Continues having intermittent chest pain. Troponins did not trend up. We will recommend coronary angiography with possible intervention as he has multiple risk factors and chest pain which has typical features to it. I have discussed risks and benefits of the procedure with the patient in detail. Risks including bleeding, infection, kidney function worsening, heart attack, stroke, abnormal heart rhythm or were discussed. Patient verbalized understanding and wants to proceed with the procedure. Continue aspirin and atorvastatin N.p.o. for cardiac catheterization this afternoon. Blood pressure control. We will discuss further management after coronary angiography and possible intervention. Coding Level of Care Code Acute System Configuration Specialist for Chg Fwd Diagnoses Chest pain R07.9 Hypertension I10 Hyperlipidemia E78.5 Abnormal stress test R94.39
[2020-01-02] MEDS: losartan 50 mg Tablet PO (09:10)
[2020-01-02] MEDS: isosorbide mononitrate 20 mg Tablet 10 MG PO ×2 (09:10→17:42)
[2020-01-02] MEDS: pantoprazole DR 40 mg Tablet PO (09:10)
[2020-01-02] MEDS: aspirin 81 mg EC Tablet PO (09:11)
[2020-01-02] MEDS: metoprolol tartrate 25 mg Tablet PO ×2 (09:11→17:42)
[2020-01-02] MEDS: sodium chloride 0.9% 1,000 ML 75 ML IV (09:12)
--- NOTE | 2020-01-02 09:30 | PC.NURSE ---
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
--- NOTE | 2020-01-02 10:42 | PC.NURSE ---
Addendum entered by Jennifer Swann 01/02/20 12:04: orders received at 0855. Original Note: Orders clarified via telephone with Dr. Mcintyre. Physician gave telephone order to hold morning lovenox for angiogram. Continue IV fluids at 75 ml/hr, stop 50 ml/hr order. RBTO.
--- NOTE | 2020-01-02 10:42 | PC.NURSE ---
Patient reports chest pressure to left medial chest. Patient rates at 5/10. Denies any SOB, nausea. Patient is not diaphoretic. VSS. Dr. Mcintyre updated on patient condition. Order received to obtain 12 lead EKG, RBTO. EKG WNL, nurse to continue to monitor. 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
[2020-01-02] MEDS: diphenhydrAMINE 50 mg Capsule PO (10:48)
--- NOTE | 2020-01-02 10:49 | ECG_ITS ---
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 Measurements Intervals [place] Rate: 66 P: 45 WV: 180 QRS: 11 QRSD: 89 T: 30 QT: 393 QTc: 413 Interpretive Statements SINUS RHYTHM Compared to ECG 01/01/2020 19:21:55 Atrial abnormality no longer present Electronically Signed On 01-02-2020 19:21:04 CDT by Del Mcintyre M.D. [id number]
--- NOTE | 2020-01-02 11:57 | PC.NURSE ---
Patient to laborer/key man at this time. VSS
--- NOTE | 2020-01-02 12:00 | XACV_ITS ---
Exam Room: [facility] Ht: 178 cm Wt: 88 kg BSA: 2.11 m2 Gender: Male : 1940 Any Known Allergies: Other Exam Priority: Routine Procedure(s): Procedure Description: Diagnostic procedure Procedure Description: Left Heart Catheterization Procedure Description: Left ventriculography Procedure Description: Coronary Angiography Diagnostic Cath Status: Urgent Diagnostic Findings * LM has luminal irregularities.. * LAD has diffuse luminal irregularities. In the mid segment there is a calcified, 30% stenosis. Apical LAD has a focal 50% stenosis.. * CX is a large, dominant vessel. It gives rise to 3 OM branches. OM 3 has ostial to proximal 70 to 80% serial lesions. . * RCA is a small nondominant vessel. Diffuse disease is noted.. * 3rd OM: Moderate 70% stenosis, BIANKA: 3 flow. * Coronary angiography shows left dominance. Conclusions 1. 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 4. This is not a large vessel.. 5. Nonobstructive, diffuse disease of LAD. Recommendations * Patient has significant disease in OM 3. This is not a large vessel. We will try medical therapy by adding Ranexa as patient did not tolerate isosorbide mononitrate in the past. If he continues having chest pain symptoms on optimal medical therapy, we will consider PCI of proximal OM 3. * Add Ranexa 500 mg twice daily. * Aggressive risk factor modification with better blood pressure control. * Cardiology office follow-up in 2 weeks. We will reassess symptoms on optimal medical therapy. Interventional RX Recommendation: medical therapy and/or counseling Diagnostic RX Recommendation: medical therapy and/or counseling Anticoagulation: Heparin LV EDP: 31 mmHg Pressures Phase:Rest AO : 91 / 50 ( 63 ) @ 7:22:00 AM 125 / 57 ( 84 ) @ 7:36:00 AM LV : 119 / 28 / @ 7:35:00 AM 130 / 20 / @ 7:35:00 AM 117 / 16 / @ 7:36:00 AM Valves Phase:DefaultPhase AV : 0.0 @ 12:44:35 PM Clinical Evaluation EBL: 5mL-10mL Procedural Details Procedure Consent Obtained. Pre-Procedure Time Out. Identified patient by full name and date of as verbalized by the patient/guarantor. Does the consent match the physician's order: Yes. Accurate & Complete Informed Consent: Yes. Inpatient/Outpatient History & Physical on Chart: Yes. If H&P is completed, is and addenduem needed: No; If yes, is the addendum complete: N/A. Visualize and Verify Site with Patient/Guarantor: N/A. Relevant Radiology Images available: N/A. Pre-op teaching completed and patient verbalized understanding. The risks, benefits, and alternatives of sedation and/or procedure were discussed by physician. The patient agrees to continue. Procedure started. [facility] Clinical Fraility Score: 3: Managing Well. Optical Instrument Inspector Indications: Worsening Angina. Chest Pain Symptom Assessment: Atypical Angina. Cardiovascular Instability: No. Correct patient, site and procedure confirmed by cath team. PERRLA. Strong, equal hand translator interpreter bilaterally. Lungs clear x 5 lobes. IV Site on Arrival: 18 gauge in the right anticubital. IV Site on Arrival: 20 gauge in the left wrist. IV Fluids: 0.9% NaCl at KVO. 0 mL infused prior to greenskeeper laborer. Pre Procedural Pulses: bilateral dorsalis pedis was 2+. Pre Procedural Pulses: bilateral posterior tibial was 2+. Pre Procedural Pulses: bilateral radial was 3+. Oxygen started at 2liters/min via nasal canula. bilateral groins was prepped with chloroprep then draped in the usual sterile fashion. right radial was prepped with chloroprep then draped in the usual sterile fashion. Baseline sample Acquired. HR: 67 BPM. Physician notified. Equipment: 6F - Radial. Cardiac Cath Pack. ACIST Manifold Kit Model BT 2000. Heparinized Saline (2 units/mL), 1000 mL bag. Physician arrived. Physician scrubbed in. Immediate Pre-Procedure Time Out. Correct Patient: Yes; Correct Procedure: Yes; Correct Site: Yes; Correct Patient Position: Yes; Correct Supplies: Yes; Dried Flammable Prep: Yes; Blood Products Available: N/A;. Arterial access obtained. A TR 6FR Radial TIG 4.0 110cm was advanced over the wire and used for Left coronary angiography. Multiple views taken of left coronary artery. Catheter redirected to the RCA. Multiple views taken of right coronary artery. EDP Sample taken: LV 119/28,33; HR: 53 BPM; SpO2: 97%. Pullback taken: LV Off; AO Off; Mean: , Peak to Peak: , SEP: ; HR: 75 BPM; SpO2: 96%. EDP Sample taken: LV 130/20,31; HR: 81 BPM; SpO2: 94%. Pullback taken: LV 117/16,24; AO 125/57(84); Mean: , Peak to Peak: 0mmHg, SEP: ; HR: 77 BPM; SpO2: 94%. LV EDP: 31. Catheter out. Total IV fluids: 250 mL. Medication's Wasted: Lidocaine 1% = 18 mL. Medication's Wasted: Nitro = 49.7 mg. A TR Band was successful obtaining hemostatsis at the Right Radial artery insertion site. TR band placed. Hemostasis obtained. Post Procedure: Pulses reassessed and unchanged. PERRLA. Strong, equal hand translator interpreter bilaterally. No VTE prophylaxis required. Medication's Wasted: Heparin = 1000 units. Contrast type used: Omnipaque 300 mgI/mL, 500 mL bottle. Post-op diagnosis: non obstructive CAD. Complications: none. Estimated blood loss: 5mL-10mL. Procedure completed. Patient transferred by wheelchair to 1st floor. Vital chart was stopped. Access Site Site: Right Radial artery Sheath Size: 6 Fr Hemostasis Method: TR Band Hemostasis Success: Successful Procedure Medications Start: 12:17 PM Stop: 12:17 PM Medication: Versed Amount: 1 mg Route: I.V. Start: 12:17 PM Stop: 12:17 PM Medication: Fentanyl Amount: 50 mcg Route: I.V. Start: 12:19 PM Stop: 12:19 PM Medication: Nitrogylcerin Amount: 200 mcg Route: I.A. Start: 12:22 PM Stop: 12: PM Medication: Heparin Amount: 5000 units Route: I.V. Start: 12: PM Stop: 12: PM Medication: 0.9% Saline Amount: 250 ml Route: I.V. bolus Start: 12: PM Stop: 12: PM Medication: Nitrogylcerin Amount: 100 mcg Route: I.A. Start: 12:32 PM Stop: 12:32 PM Medication: Versed Amount: 1 mg Route: I.V. Start: 12:32 PM Stop: 12:32 PM Medication: Fentanyl Amount: 50 mcg Route: I.V. I, the attending physician, have reviewed and verified all procedure medications. Yes, all medications given per verbal order History/Risk Factors Hypertension: Yes Dyslipidemia: Yes Peripheral Arterial Disease (PAD): No Myocardial Infarction (HI): No Obesity: No Renal Disease: No Tobacco Use: Former Prior Interventions PCI: No CABG: No Valve Surgery: No Report Signatures Finalized by Del Mcintyre MD on 01/03/2020 07:21 PM
--- NOTE | 2020-01-02 13:30 | W.PM.OPSUD ---
Surgery/Procedure H&P Update DATE OF PROCEDURE: January 02, 2020 DATE H&P PERFORMED: 01/02/20 H&P UPDATE INFORMATION: I have reviewed H&P completed within last 30 days, I have examined patient prior to procedure and No changes to prior documentation PREOP DIAGNOSIS: Worsening angina/abnormal stress test PRIMARY INDICATION FOR PROCEDURE: Worsening angina/abnormal stress test PLANNED PROCEDURE: Operation Date: 01/02/20 12:00 Proposed Procedures p Cardiac Catheterization(Left) - Del Mcintyre M.D PATIENT REASSESSED PRIOR TO SEDATION, WITH NO CHANGE NOTED: Yes PHYSICAL EXAM: alert, oriented x 3 and clear to auscultation bilaterally AIRWAY EVAL/ANESTHESIA PLAN: ASA III, Risks, benefits & alternatives of sedation and/or procedure discussed and Patient agrees to continue as planned
--- NOTE | 2020-01-02 13:30 | PC.NURSE ---
Patient back from blood bank laboratory professional at 1250. 2 nurse verification of site. TR band intact to right wrist. VSS. Crackles auscultated to BLL. Dr. Mcintyre notified. Verbal order to dc IV fluids and give 20 mg lasix IVP ONce, RBVO. Nurse to continue to monitor.
--- NOTE | 2020-01-02 14:27 | PC.CHAP ---
Pastoral Care Encounter/Spiritual Assessment Type of Contact [] Declined supervisor customer services visit [] Patient/Family/Request visit [] Outpatient visit [] Follow-up visit [] Physician referral [] Code/Alert [] Routine visit [] Staff referral [] Actively dying [] Patient sleeping [] Family support [] [x] Out of room [] Palliative care [] [] Receiving care in room [] Pre-surgical visit [] Trauma [] Long length of stay [] ICU visit [] Other: Relational/Emotional Strength [] Patient feels connected with others/family/visitors/staff [] Distress [] Loneliness/isolation [] Abandonment Spirituality of Patient [] Person of Amy [] Attends Oriental Orthodox of their Amy [] Believes in Prayer [] Reads Bible or Sabianism materials [] There are Spiritual issues to be addressed Operations Officer Interventions [] Prayer [] Active listening [] Non-anxious presence [] Spiritual/emotional support [] Crisis/trauma care [] Spiritual counseling [] Bereavement support [] Provided bereavement packet [] Provided Bible/devotional materials [] Provided toy/stuffed animal, coloring book to patient or family member [] Provided Communion [] Anointing/[place] [] Salvation [] Completed spiritual assessment [] Other: Impact on Illness or Injury [] Angry [] Fearful [] Anxious [] Often cries [] Exhaustion [] Unable to work [] Unable to attend mormonism [] Unable to walk/stand [] Unable to read [] Unable to drive [] Unable to eat/drink [] Unable to sleep [] Unable to be with family [] Patient intubated [] Other: Summary Patient was not in the room at the time of the supervisor customer services visit. Referred patient for a follow up visit. Patient visit attempted by Operations Officer Hilario Arvizu. Time spent with patient 3 minutes
[2020-01-02] MEDS: FUROsemide 10 mg/mL SDV 2mL 20 MG IVP (14:34)
--- NOTE | 2020-01-02 15:58 | PM.DCS ---
Discharge Providers Date of Admission: 01/01/20 18:24 Date of Discharge: January 02, 2020 Attending Provider at Admission: Bubba Grier Attending Provider at Discharge: Tiffanie Velásquez DO Primary Care Provider: Steve Velasquez MD Diagnoses at Discharge Discharge Diagnosis (1) Chest pain: Status: Acute (2) Hypertension: Status: Acute (3) Hyperlipidemia: Status: Acute (4) Abnormal stress test: Status: Acute Reason for Visit Reason for Visit: Chest Pain Hospital Course Hospital Course: Patient presents to the hospital with chest pain, had recently been discharged therefore cardiology was consulted due to concern for abnormal stress test. Patient was taken to cardiac Travograph Operator noted to have nonobstructive coronary artery disease therefore medical management was indicated. Cardiology cleared patient for discharge without any chest pain or shortness of breath. Physical Exam Const: COMMON NORMALS: patient oriented x3 and alert GENERAL APPEARANCE: cooperative ORIENTATION/CONSCIOUSNESS: Yes awake, Yes oriented to person, Yes oriented to place and Yes oriented to time HENMT: COMMON NORMALS: normocephalic and atraumatic HEAD & SCALP: normocephalic and atraumatic Eye: COMMON NORMALS: Equal, round and reactive pupils present PUPIL: Yes Equal, round and reactive pupils present Neck/C-Spine: COMMON NORMALS: supple GENERAL: Yes normal visual inspection Resp: COMMON NORMALS: normal respiratory effort and clear to auscultation bilaterally EFFORT & INSPECTION: Yes able to speak in complete sentences AUSCULTATION: clear to auscultation bilaterally, no rhonchi and no wheezes Cardio: COMMON NORMALS: regular rate, regular rhythm and No murmurs present (Cardio) RATE: regular rate RHYTHM: regular rhythm GI: COMMON NORMALS: Soft to palpation and non-tender INSPECTION: No abdominal distension AUSCULTATION: Yes normoactive bowel sounds PALPATION: Yes Soft to palpation Extremity: COMMON NORMALS: no clubbing, cyanosis or edema and no calf tenderness Neuro: COMMON NORMALS: patient oriented x3, CN's II-XII intact bilaterally, moves all extremities and no focal motor deficits SENSORIUM/ORIENTATION: Yes alert, Yes oriented to person, Yes oriented to place and Yes oriented to time SPEECH: speech normal Psych: COMMON NORMALS: mental status grossly normal and cooperative Discharge Data Data Completed and Pending: Completed Studies During Hospitalization Category Date Time Status XR chest 1V carlos ble [id number] Stat Exams 01/01/20 16:05 Completed Pending at discharge Category Date Time Status 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 service Routin e Exams 01/02/20 12:00 Taken Magnesium AM LABS Lab 01/03/20 04:00 Ordered Magnesium AM LABS Lab 01/04/20 04:00 Ordered Phosphorus AM LAB S Lab 01/03/20 04:00 Ordered Phosphorus AM LAB S Lab 01/04/20 04:00 Ordered Labs from last 24 hours 01/02/20 01/02/20 01/02/20 02:55 02:55 02:55 WBC RBC Hgb Hct MCV MCH MCHC RDW Plt Count MPV Neut % (Auto) Lymph % (Auto) [place] % (Auto) Eos % (Auto) Baso % (Auto) Neut # (Auto) Lymph # (Auto) [place] # (Auto) Eos # (Auto) Baso # (Auto) Nucleated RBC % (a uto) Nucleated RBCs # PT 15.10 H INR 1.15 Sodium Potassium Chloride Carbon Dioxide Anion Gap BUN Creatinine GFR Calculation Glucose Calculated Osmolal ity Calcium Phosphorus 4.6 H Magnesium 2.1 Total Bilirubin AST ALT Alkaline Phosphata se Troponin T Baselin e Troponin T 120 Min [place] Troponin T Troponin T Hi Sens 6Hr Troponin T Hi Sens 6Hr [place] NT-Pro-B Natriuret Pep Total Protein Albumin Globulin Triglycerides 82 Cholesterol 102 LDL Cholesterol, C alc 52 HDL Cholesterol 34 L LDL/HDL Ratio 1.53 Cholesterol/HDL Ra yuliana 3.00 TSH 01/02/20 01/02/20 01/01/20 02:55 02:55 22:41 WBC 7.4 RBC 4.46 Hgb 13.3 Hct 41.2 L MCV 92.4 MCH 29.8 MCHC 32.3 RDW 13.2 Plt Count 295 MPV 10.1 Neut % (Auto) 56.0 Lymph % (Auto) 28.8 [place] % (Auto) 9.3 Eos % (Auto) 4.6 Baso % (Auto) 0.8 Neut # (Auto) 4.13 Lymph # (Auto) 2.1 [place] # (Auto) 0.7 Eos # (Auto) 0.3 Baso # (Auto) 0.1 Nucleated RBC % (a uto) 0 Nucleated RBCs # 0.0 PT INR Sodium 135 L Potassium 3.6 Chloride 102 Carbon Dioxide 23 Anion Gap 13.6 BUN 19 Creatinine 1.3 H GFR Calculation Not Reportable Glucose 86 Calculated Osmolal ity 282 L Calcium 8.8 Phosphorus Magnesium Total Bilirubin 0.5 AST 19 ALT 12 Alkaline Phosphata se 106 Troponin T Baselin e Troponin T 120 Min [place] Troponin T Troponin T Hi Sens 6Hr 11.06 Troponin T Hi Sens 6Hr Delta -1.94 L NT-Pro-B Natriuret Pep Total Protein 6.0 L Albumin 3.4 L Globulin 2.6 Triglycerides Cholesterol LDL Cholesterol, C alc HDL Cholesterol LDL/HDL Ratio Cholesterol/HDL Ra yuliana TSH 01/01/20 01/01/20 01/01/20 18:52 16:35 16:35 WBC RBC Hgb Hct MCV MCH MCHC RDW Plt Count MPV Neut % (Auto) Lymph % (Auto) [place] % (Auto) Eos % (Auto) Baso % (Auto) Neut # (Auto) Lymph # (Auto) [place] # (Auto) Eos # (Auto) Baso # (Auto) Nucleated RBC % (a uto) Nucleated RBCs # PT INR Sodium Potassium Chloride Carbon Dioxide Anion Gap BUN Creatinine GFR Calculation Glucose Calculated Osmolal ity Calcium Phosphorus Magnesium Total Bilirubin AST ALT Alkaline Phosphata se Troponin T Baselin e Troponin T 120 Min [place] 12.06 Delta Troponin T -0.94 L Troponin T Hi Sens 6Hr Troponin T Hi Sens 6Hr [place] NT-Pro-B Natriuret Pep 313 Total Protein Albumin Globulin Triglycerides Cholesterol LDL Cholesterol, C alc HDL Cholesterol LDL/HDL Ratio Cholesterol/HDL Ra yuliana TSH 3.32 01/01/20 01/01/20 01/01/20 16:35 16:35 16:35 WBC 10.5 H RBC 4.95 Hgb 15.3 Hct 45.3 MCV 91.5 MCH 30.9 MCHC 33.8 RDW 13.1 Plt Count 349 MPV 9.8 Neut % (Auto) 63.5 Lymph % (Auto) 23.3 [place] % (Auto) 8.4 Eos % (Auto) 3.7 Baso % (Auto) 0.7 Neut # (Auto) 6.66 Lymph # (Auto) 2.4 [place] # (Auto) 0.9 Eos # (Auto) 0.4 Baso # (Auto) 0.1 Nucleated RBC % (a uto) 0 Nucleated RBCs # 0.0 PT INR Sodium 136 Potassium 4.7 Chloride 98 Carbon Dioxide 27 Anion Gap 15.7 BUN 19 Creatinine 1.3 H GFR Calculation Not Reportable Glucose 111 Calculated Osmolal ity 285 Calcium 10.1 Phosphorus Magnesium Total Bilirubin 0.7 AST 23 ALT 15 Alkaline Phosphata se 137 H Troponin T Baselin e 13 Troponin T 120 Min [place] Troponin T Troponin T Hi Sens 6Hr Troponin T Hi Sens 6Hr [place] NT-Pro-B Natriuret Pep Total Protein 7.0 Albumin 4.4 Globulin 2.6 Triglycerides Cholesterol LDL Cholesterol, C alc HDL Cholesterol LDL/HDL Ratio Cholesterol/HDL Ra yuliana TSH Vitals: Last Vital Signs Temp 98.1 F 01/02/20 15:47 Pulse 71 01/02/20 15:47 Resp 17 01/02/20 15:47 BP 101/62 01/02/20 15:47 Pulse Ox 98 01/02/20 15:47 Discharge Plan Discharge Patient Disposition: Home Condition: Stable Prescriptions: New metoprolol tartrate 25 mg Tablet 25 mg PO BID 30 Days Qty: 60 RF: 0 ranolazine [Ranexa] 500 mg tablet extended release 12 hr 500 mg PO BID 30 Days Qty: 60 RF: 0 Continued olmesartan 20 mg tablet 20 mg PO DAILY RF: 0 atorvastatin 80 mg tablet 40 mg PO DAILY RF: 0 cetirizine 10 mg tablet 10 mg PO DAILY PRN (Reason: Allergy Symptoms) RF: 0 triamcinolone acetonide 0.1 % cream 1 applic topical DAILY RF: 0 fluticasone propionate 50 mcg/actuation spray,suspension 1 spray INTRANASAL DAILY PRN (Reason: Nasal Congestion) RF: 0 omeprazole 20 mg Capsule,Delayed Release(Dr/Ec) 20 mg PO DAILY RF: 0 aspirin [Aspirin Low Dose] 81 mg Tablet,Delayed Release (Dr/Ec) 81 mg PO DAILY RF: 0 nitroglycerin 0.4 mg Tablet, Sublingual 0.4 mg sublingual Q5M PRN (Reason: Chest Pain) Qty: 20 RF: 0 Discontinued clonidine HCl 0.1 mg tablet 0.1 mg PO Q2H PRN (Reason: Blood Pressure) RF: 0 metoprolol succinate [Toprol XL] 25 mg tablet extended release 24 hr 25 mg PO DAILY RF: 0 isosorbide mononitrate 10 mg tablet 10 mg PO BID Qty: 60 RF: 0 Discharge Orders: Discharge Order (Routine); Ordered 10/09/20 Ordered By: Tiffanie Velásquez Referrals: Del Mcintyre M.D [Physician] - 1 week Steve Velasquez MD [Primary Care Provider] - 4-7 days Discharge Diet: Cardiac Discharge Activity: Increase activity as tolerated Activity Restrictions/Additional Instructions: Plan for discharge to home with addition of Ranexa 500 mg twice daily. With the addition of this medication stop taking Imdur Change metoprolol to metoprolol tartrate twice daily Continue to monitor blood pressure closely and call your primary care provider for any blood pressure less than 100 systolic Call your physician or present to the ED for any acute illness or concern. 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
--- NOTE | 2020-01-02 16:15 | PC.NURSE ---
TR band removed per protocol at 1600. Site asymptomatic, dressing applied, CDI. Nurse to continue to monitor.
--- NOTE | 2020-01-02 18:37 | PC.NURSE ---
Dr. Mcintyre cleared patient for discharge. Discharge instructions given per the physician's orders. Patient verbalized understanding and did not have any further questions. IVs have been removed. Patient dressed self. Florin, son, contacted for transfer. No further needs identified at this time. Nurse to continue to monitor.
== END 2020-01-02 18:45 | disposition home or self-care (01) ==
LOC: ER 19:03 → CSU 20:44
PROVIDERS: Emergency Medicine; Family Medicine; Internal Medicine; Admitting Provider Internal Medicine; PCP Family Medicine; Visit Provider Family Medicine
DX: I25.10 Atherosclerotic heart disease of native coronary artery without angina pectoris (principal); R07.9 Chest pain, unspecified; C61 Malignant neoplasm of prostate; R91.8 Other nonspecific abnormal finding of lung field; R94.39 Abnormal result of other cardiovascular function study; K44.9 Diaphragmatic hernia without obstruction or gangrene; N17.9 Acute kidney failure, unspecified; E78.5 Hyperlipidemia, unspecified; I10 Essential (primary) hypertension; I16.0 Hypertensive urgency; Z92.3 Personal history of irradiation; Z87.891 Personal history of nicotine dependence
CPT/HCPCS: 12345; 36415; 71045; 80053; 80061; 83735; 83880; 84100; 84443; 84484; 85025; 85610; 93005; 93452; 94664; 96360; 96361; 96372; 96374; 96375; 99282; 99285; C1769; C1887; C1894; G0378; J1644; J1650; J1940; J2250; J3010; J3490; J7030; Q0163; Q9967

== ENCOUNTER 2020-05-06 18:30 | Emergency (ER) | payer MEDICARE, OTHER, SELFPAY ==
[2020-05-06 18:36] VITALS: BP 172/87; PULSE 85; RESP 24; TEMP 36.8; O2SAT 95; BMI 28.7
--- NOTE | 2020-05-06 18:49 | XR_ITS ---
WS: [id number] Thoracic spine, 3 views, 05/06/2020 Clinical Data: fall Comparison: None. Findings: No compression fractures are seen. The disc heights are normal. There is osteoporosis of all the thoracic vertebral bodies. The lower thoracic vertebral bodies show osteoarthritis. The paravertebral regions are unremarkable. XR/XR thoracic spine 3V* [id number] Impression: 1. Negative for thoracic vertebral body compression fracture. 2. Osteoarthritis and osteoporosis.
--- NOTE | 2020-05-06 18:49 | XR_ITS ---
WS: [id number] Chest 2 views, 05/06/2020 Clinical Data: fall Comparison: Portable chest, 01/01/2020. Findings: No nodules, masses or effusions are seen. The heart is normal. The pulmonary vascularity is not increased. No pneumonia or pneumothorax is seen. The aortic arch and descending aorta show calci fication and tortuosity. XR/XR chest 2V* [id number] Impression: Atherosclerosis.
--- NOTE | 2020-05-06 18:52 | W.ED.FALL ---
HPI - Fall General: Chief Complaint: Fall Stated Complaint: Fall/Injury Time Seen by Provider: 05/06/20 18:41 Source: patient Mode of arrival: ambulatory Limitations: no limitations History of Present Illness: HPI Narrative: 80-year-old male who states that at 330 today he stepped off his porch and slipped and fell. He states he landed on his back and his left side. He states that he had no pain immediately but is gradually had worsening left rib pain and left thoracic spine pain. States pain is currently a 5 out of 10. Denies difficulty walking. He denies hitting his head. Denies any neck pain. complaint: fall Associated symptoms-after fall: Denies abdominal pain, chest pain or headache(s) Review of Systems Const: Denies: fever(s), chills, body aches or change in appetite Eyes: Denies: blurry vision or eye discomfort ENMT: Denies: throat pain or dental pain Card: Denies: chest pain Resp: Denies: dyspnea GI: Denies: abdominal pain, nausea, vomiting or diarrhea : Denies: dysuria Musc: Reports: back pain Skin/Breast: Denies: rash Neuro: Denies: headache(s) Psych: Denies: depression Rich/Lymph: Denies: easy bruising All/Imm: Denies: urticaria PFSH ED PFSH: Medical History (Updated 05/06/20 @ 19:26 by Julieth Machado MD) Dyspnea Eczema GERD (gastroesophageal reflux disease) Hyperlipidemia Hypertension Hyponatremia Surgical History History of appendectomy History of cholecystectomy History of knee surgery History of shoulder surgery Family History Mother Maternal complication related to childbirth Social History Smoking and tobacco status: former smoker Alcohol intake: never Physical Exam Const: COMMON NORMALS: no acute distress, patient oriented x3 and healthy appearing HENMT: COMMON NORMALS: normocephalic and atraumatic HEAD & SCALP: normocephalic and atraumatic Eye: COMMON NORMALS: Equal, round and reactive pupils present and EOMs intact bilaterally PUPIL: Yes Equal, round and reactive pupils present Neck/C-Spine: COMMON NORMALS: full ROM and supple Chest: COMMONS NORMALS: normal inspection of the chest and normal palpation of entire chest wall Resp: COMMON NORMALS: normal respiratory effort, No retractions, No use of accessory muscles and clear to auscultation bilaterally AUSCULTATION: clear to auscultation bilaterally Cardio: COMMON NORMALS: regular rate, regular rhythm and No murmurs present (Cardio) RATE: regular rate RHYTHM: regular rhythm GI: COMMON NORMALS: Normal to inspection, nondistended, normoactive bowel sounds present, Soft to palpation, non-tender and no masses PALPATION: Yes Soft to palpation Back/Pelvis: OTHER: Tenderness over left posterior ribs and mid thoracic spine no step-off Extremity: COMMON NORMALS: normal to inspection and full ROM Neuro: COMMON NORMALS: patient oriented x3, moves all extremities and no focal motor deficits Psych: COMMON NORMALS: mental status grossly normal, Normal thought process present and cooperative THOUGHT PROCESS: Normal thought process present Skin: COMMON NORMALS: no rashes or lesions noted and no wounds GENERAL SKIN EXAM: no rashes or lesions noted Course Vital Signs: Vital signs: Vital Signs Temperature 98.3 F 05/06/20 18:36 Pulse Rate 85 05/06/20 18:36 Respiratory Rate 24 H 05/06/20 18:36 Blood Pressure 172/87 05/06/20 18:36 Pulse Oximetry 95 05/06/20 18:36 MDM - Fall MDM Narrative: Medical decision making narrative: Patient presents here with left side thoracic contusion from a fall. He has no tenderness over his kidneys and no hematuria. X-ray shows no signs of fracture. Patient had no other injuries and is stable for discharge. He starts have any worsening pain or shortness of breath or hematuria he is to return immediately. He understands agrees to plan. Imaging Data^: CXR: Attestation: I personally reviewed and interpreted this imaging study as follows: My impression: no acute abnormality xr lumbar: Attestation: I personally reviewed and interpreted this imaging study as follows: My impression: no acute abnormality Discharge Plan Discharge Patient Disposition: Home Clinical Impression: Fall Qualifiers: Encounter type: initial encounter Qualified Code(s): W19.XXXA - Unspecified fall, initial encounter Contusion Qualifiers: Encounter type: initial encounter Contusion area: thoracic wall Condition: Stable Prescriptions: New Naprosyn 500 mg tablet 500 mg PO BID PRN (Reason: pain) Qty: 20 RF: 0 No Action olmesartan 20 mg tablet 20 mg PO DAILY RF: 0 Dupixent Syringe 300 mg/2 mL syringe SUBCUT RF: 0 Ranexa 500 mg tablet extended release 12 hr 500 mg PO BID Qty: 180 RF: 3 metoprolol tartrate 25 mg tablet 12.5 mg PO BID Qty: 90 RF: 3 atorvastatin 80 mg tablet 40 mg PO DAILY RF: 0 cetirizine 10 mg tablet 10 mg PO DAILY PRN (Reason: Allergy Symptoms) RF: 0 fluticasone propionate 50 mcg/actuation spray,suspension 1 spray INTRANASAL DAILY PRN (Reason: Nasal Congestion) RF: 0 omeprazole 20 mg Capsule,Delayed Release(Dr/Ec) 20 mg PO DAILY RF: 0 aspirin [Aspirin Low Dose] 81 mg Tablet,Delayed Release (Dr/Ec) 81 mg PO DAILY RF: 0 nitroglycerin 0.4 mg Tablet, Sublingual 0.4 mg sublingual Q5M PRN (Reason: Chest Pain) Qty: 20 RF: 0 Discharge Orders: Discharge ED (Routine); Ordered 05/06/20 Ordered By: Julieth Machado Referrals: Steve Velasquez MD [Primary Care Provider] - 1-3 days Discharge Diet: Advance as tolerated Discharge Activity: Resume usual activity Patient Instructions: Contusion in Adults (ED), Opioid Safety Coding 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
== END 2020-05-06 19:36 | disposition home or self-care (01) ==
PROVIDERS: Emergency Provider Emergency Medicine; PCP Family Medicine
DX: S20.20XA Contusion of thorax, unspecified, initial encounter (principal); Z79.82 Long term (current) use of aspirin; I10 Essential (primary) hypertension; E78.5 Hyperlipidemia, unspecified; Z87.891 Personal history of nicotine dependence; W01.0XXA Fall on same level from slipping, tripping and stumbling without subsequent striking against object, initial encounter
CPT/HCPCS: 71046; 72072; 99282

== ENCOUNTER → 2021-07-22 08:57 | Outpatient (BNVA) | payer MEDICARE, OTHER, SELFPAY | PROVIDERS: PCP Family Medicine; Visit Provider Internal Medicine | DX: I25.10 Atherosclerotic heart disease of native coronary artery without angina pectoris (principal); I47.1 Supraventricular tachycardia; E78.5 Hyperlipidemia, unspecified; I10 Essential (primary) hypertension; Z87.891 Personal history of nicotine dependence; Z79.82 Long term (current) use of aspirin | CPT/HCPCS: 99214 ==

== ENCOUNTER 2021-09-29 09:28 | Emergency (ER) | payer MEDICARE, OTHER, SELFPAY ==
[2021-09-29 09:46] VITALS: BP 180/90; PULSE 71; RESP 18; O2SAT 96; BMI 28.7
--- NOTE | 2021-09-29 09:50 | USCV_ITS ---
ArMukund rosario Age: 81 Gender: M : 1940 Exam Date: 09/29/2021 10:32 Ordering Phys: Cj Marcos DO Technologist: Vinh Oneil Exam Location: [facility] [place]_ Indication: leg pain PROCEDURES: Venous duplex imaging was performed in only the right lower extremity. The following venous structures were evaluated: common femoral vein, profunda vein, proximal portion of the greater saphenous vein, superficial femoral vein, and the popliteal vein. In addition, the posterior tibial and peroneal trunk were evaluated. Serial compression, augmentation maneuvers, and spectral Doppler flow evaluation were performed. FINDINGS: Normal 2-D Doppler and augmentation and compressibility throughout the lower extremity venous structures. Additional imaging through the proximal calf veins also reveals no thrombus. Limited evaluation of the greater saphenous vein is patent with no thrombus. Nonvascular complex/heterogenous area in the popliteal fossa. No blood flow to the area. Patient does report pain in this area. CONCLUSIONS No DVT right lower extremity. Complex Johnson's cyst or hemorrhagic cyst right popliteal fossa. Dr. Kailey Fan DO (Electronically Signed) Final Date: 29 September 2021 11:43 S
--- NOTE | 2021-09-29 09:50 | XR_ITS ---
WS: [id number] Right knee, 3 views, 09/29/2021 Clinical Data: pain Comparison: None. Findings: No fractures or dislocations are seen. There is medial joint compartment narrowing. The patella shows osteoarthritic change with posterior and anterior spurring. There are vascular calcifications. XR/XR knee RT 3V* [id number] Impression: Mild osteoarthritis of right knee. Kellgren-Tomás Classification: grade 2 (minimal): definite osteophytes and p ossible joint space narrowing
--- NOTE | 2021-09-29 10:43 | W.ED.EXTPRO ---
HPI - Extremity Problem General: Chief complaint: Extremity Injury, Lower Stated complaint: right knee/leg pain Time Seen by Provider: 09/29/21 09:29 Source: patient Mode of arrival: ambulatory Limitations: no limitations History of Present Illness: 81-year-old male presents to the emergency room with complaints of unable to bear weight. He was working in his garden on his knees bent over putting all of his weight on his knee yesterday today's painful difficult to walk no trauma no fall he has noticed that when he walks for a period of time he will get aching in his calf it resolves with rest just a few seconds he says usually particularly when he is golfing he notes that if he has to go up an incline. He has not had this evaluated before. He states that pain is different than what brought him in today. MD Complaint: joint pain Onset (ago): hour(s) Pain Consistency: constant Location: right and knee Quality: aching Radiation: none Relieving factors: rest Exacerbating factors: weight bearing Associated symptoms: Deny arthralgias, chest pain, fever(s), myalgias, rash or short of breath Review of Systems Const: Denies: fever(s), chills, fatigue or malaise ENMT: Denies: throat pain, ear or mastoid pain, nasal discharge or nasal congestion Card: Denies: chest pain, palpitations or irregular heart rhythm Resp: Denies: dyspnea, productive cough or non-productive cough GI: Denies: abdominal pain, nausea, vomiting, hematemesis, coffee ground emesis, diarrhea, constipation, bloating, hematochezia or melena : Denies: flank pain, dysuria, urinary frequency or urinary urgency Musc: Reports: joint pain Skin/Breast: Denies: rash PFSH ED PFSH: Medical History (Updated 09/29/21 @ 11:09 by Cj Marcos DO) Dyspnea Eczema GERD (gastroesophageal reflux disease) Hyperlipidemia Hypertension Hyponatremia Surgical History History of appendectomy History of cholecystectomy History of knee surgery History of shoulder surgery Family History Mother Maternal complication related to childbirth Social History Smoking and tobacco status: former smoker Alcohol intake: never Physical Exam Const: COMMON NORMALS: no acute distress GENERAL APPEARANCE: cooperative and comfortable ORIENTATION/CONSCIOUSNESS: Yes awake, Yes oriented to person, Yes oriented to place and Yes oriented to time HENMT: COMMON NORMALS: normocephalic, atraumatic and hearing grossly normal bilaterally HEAD & SCALP: normocephalic and atraumatic Neck/C-Spine: COMMON NORMALS: no JVD Resp: COMMON NORMALS: normal respiratory effort, No retractions, No use of accessory muscles and clear to auscultation bilaterally AUSCULTATION: clear to auscultation bilaterally Cardio: COMMON NORMALS: no JVD, regular rate, regular rhythm and No murmurs present (Cardio) RATE: regular rate RHYTHM: regular rhythm GI: COMMON NORMALS: Soft to palpation and No hepatosplenomegaly present AUSCULTATION: Yes normoactive bowel sounds PALPATION: Yes Soft to palpation, No Tenderness to palpation present (GI), No Guarding due to palpation present (GI) and Yes No hepatosplenomegaly present Extremity: COMMON NORMALS: normal to inspection, capillary refill normal, no clubbing, cyanosis or edema, no calf tenderness and no pedal edema Neuro: SENSORIUM/ORIENTATION: Yes oriented to person, Yes oriented to place and Yes oriented to time Skin: COMMON NORMALS: no rashes or lesions noted GENERAL SKIN EXAM: no rashes or lesions noted Course Vital Signs: Vital signs: Vital Signs Pulse Rate 71 09/29/21 09:46 Respiratory Rate 18 09/29/21 09:46 Blood Pressure 180/90 09/29/21 09:46 Pulse Oximetry 96 09/29/21 09:46 MDM - Extremity (Nontraumatic) Medical Decision Making Patient describes intermittent claudication but does not really the reason he is here at this notices arteriosclerotic vessels on the plain x-rays and questioned him about it that is been an ongoing problem he seen Dr. Mcintyre in the past and should follow-up with him on that. His main complaint today is of knee joint pain there is no DVT and there is no acute fracture he is mostly bursitis and osteoarthritis from microtrauma from when he was doing the gardening activities. He was given steroids injection here started on anti-inflammatory follow-up with primary care Medical Records I reviewed the patient's medical records. Lab Data I reviewed the patient's lab results. Radiology Impressions Knee X-Ray 09/29/21 09:50 Impression: Mild osteoarthritis of right knee. Kellgren-Tomás Classification: grade 2 (minimal): definite osteophytes and possible joint space narrowing Discharge Plan Discharge Patient Disposition: Home Clinical Impression: Bursitis of knee, Johnson's cyst of knee, Intermittent claudication Condition: Stable Prescriptions: New diclofenac sodium 75 mg tablet,delayed release (DR/EC) 75 mg PO Q12H PRN (Reason: pain) Qty: 20 0RF No Action olmesartan 20 mg tablet 20 mg PO DAILY 0RF Dupixent Syringe 300 mg/2 mL syringe SUBCUT 0RF Ranexa 500 mg tablet extended release 12 hr 500 mg PO BID Qty: 180 3RF metoprolol tartrate 25 mg tablet 25 mg PO BID Qty: 180 3RF atorvastatin 80 mg tablet 40 mg PO DAILY 0RF cetirizine 10 mg tablet 10 mg PO DAILY PRN (Reason: Allergy Symptoms) 0RF fluticasone propionate 50 mcg/actuation spray,suspension 1 spray INTRANASAL DAILY PRN (Reason: Nasal Congestion) 0RF omeprazole 20 mg Capsule,Delayed Release(Dr/Ec) 20 mg PO DAILY 0RF aspirin [Rosi Low Dose Aspirin] 81 mg Tablet,Delayed Release (Dr/Ec) 81 mg PO DAILY 0RF nitroglycerin 0.4 mg Tablet, Sublingual 0.4 mg sublingual Q5M PRN (Reason: Chest Pain) Qty: 20 0RF Discharge Orders: Discharge ED (Routine); Ordered 09/29/21 Ordered By: Cj Marcos Discharge Diet: Usual diet Discharge Activity: Increase activity as tolerated Patient Instructions: Opioid Safety Activity Restrictions/Additional Instructions: Follow-up with your primary care doctor for the knee pain. For the leg cramping you get with activity you should follow-up with Dr. Lyle. 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
[2021-09-29 11:56] VITALS: BP 179/79; PULSE 69; RESP 18; O2SAT 97
== END 2021-09-29 11:49 | disposition home or self-care (01) ==
PROVIDERS: Emergency Provider Family Medicine
DX: M71.561 Other bursitis, not elsewhere classified, right knee (principal); M71.21 Synovial cyst of popliteal space [Baker], right knee; I73.9 Peripheral vascular disease, unspecified; I10 Essential (primary) hypertension; M79.604 Pain in right leg
CPT/HCPCS: 73562; 93971; 96374; 99284; J2930

== ENCOUNTER → 2022-01-25 09:09 | Outpatient (BNVA) | payer MEDICARE, OTHER, SELFPAY | PROVIDERS: PCP Family Medicine; Visit Provider Family Medicine | DX: C61 Malignant neoplasm of prostate (principal); E78.5 Hyperlipidemia, unspecified; I10 Essential (primary) hypertension; R07.9 Chest pain, unspecified | CPT/HCPCS: 80053; 80061; 84153; 85025 ==

== ENCOUNTER → 2022-07-21 11:13 | Outpatient (BNVA) | payer MEDICARE, OTHER, SELFPAY | PROVIDERS: PCP Family Medicine; Visit Provider Internal Medicine | DX: I25.10 Atherosclerotic heart disease of native coronary artery without angina pectoris (principal); I10 Essential (primary) hypertension; E78.2 Mixed hyperlipidemia; I47.1 Supraventricular tachycardia | CPT/HCPCS: 99213 ==

== ENCOUNTER 2022-08-12 09:06 | Emergency (ER) | payer MEDICARE, OTHER, SELFPAY ==
[2022-08-12 09:14] VITALS: BP 178/100; PULSE 93; RESP 21; TEMP 36.8; O2SAT 94
--- NOTE | 2022-08-12 09:19 | ECG_ITS ---
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 Measurements Intervals [place] Rate: 90 P: 81 CT: 162 QRS: 55 QRSD: 82 T: 80 QT: 355 QTc: 436 Interpretive Statements SINUS RHYTHM WITH OCCASIONAL SUPRAVENTRICULAR PREMATURE COMPLEXES LOW QRS VOLTAGE IN PRECORDIAL LEADS [QRS DEFLECTION < 1.0 mV IN CHEST LEADS] Compared to ECG 01/02/2020 10:55:52 Low QRS voltage now present Electronically Signed On 08-12-2022 14:00:49 CDT by Del Mcintyre M.D. [id number]
--- NOTE | 2022-08-12 09:20 | XRR_ITS ---
PROCEDURE INFORMATION: Exam: XR Chest Exam date and time: 08/12/2022 9:38 AM Age: 82 years old Clinical indication: Cough and shortness of breath; Additional info: Cough congestion TECHNIQUE: Imaging protocol: Radiologic exam of the chest. Views: 1 view. COMPARISON: CR XR chest 2V* [id number] 05/06/2020 7:00 PM FINDINGS: Lungs: There is increased ill-defined opacity in the lateral left lung base. There is mild reticular opacity in the right lung base which is stable. Pleural spaces: There is no pleural effusion or pneumothorax. Heart/Mediastinum: Cardiomediastinal contours are unremarkable. Bones/joints: Bones are unremarkable. XR/XR chest 1V portable [id number] IMPRESSION: Mild bibasilar opacity, more apparent on the left compared to 05/06/2020. Probable chronic scarring, atelectasis, or interstitial lung disease with increased atelectasis or superimposed infection, edema or aspiration in the left lower lobe.
--- NOTE | 2022-08-12 09:26 | W.ED.SOB ---
HPI - SOB/Dyspnea General: Chief Complaint: Shortness of Breath/Dyspnea Stated Complaint: Cough, fever, sob Time Seen by Provider: 08/12/22 09:10 History of Present Illness: HPI Narrative: Mukund Vivar is an 82-year-old man that presents to the emergency department with complaints of chest congestion, productive cough, low-grade fevers since Sunday. Patient was last seen by his primary care provider on 07/26/2022 for allergic rhinitis. He has been taking [id number] remedies plus Flonase. Patient reports symptoms also include sinus congestion, productive cough with purulent sputum production, muscular type chest discomfort, shortness of breath. Patient reports a history that includes CAD, high cholesterol, hypertension, and angina. Patient reports other family members in the home complaining of same symptoms. Associated symptoms: Reports chest congestion and fever(s); Deny abdominal pain, chest pain, dizziness, extremity pain, nausea, orthopnea, palpitations, polydipsia, polyuria or vomiting Review of Systems General: Reports: 10 or more systems reviewed and unremarkable except in HPI and below Const: Reports: fever(s) and fatigue; Denies: chills ENMT: Reports: nasal discharge, nasal congestion and post nasal drip; Denies: throat pain or sinus pain Card: Reports: other (Reports increased heart rate. Currently 90s); Denies: chest pain, palpitations, irregular heart rhythm, edema, swelling of feet/ankles, dyspnea on exertion, orthopnea or leg pain with exertion Resp: Reports: dyspnea, productive cough, change in phlegm color and chest congestion; Denies: non-productive cough, wheezing or stridor GI: Denies: abdominal pain, nausea, vomiting, dysphagia, diarrhea or constipation : Denies: flank pain, dysuria, urinary frequency or urinary urgency Musc: Reports: other (Reports lateral chest wall pain with cough); Denies: neck pain, back pain, extremity pain, extremity swelling, joint pain or joint swelling Skin/Breast: Denies: rash, pruritus, erythema or new lesions Neuro: Denies: headache(s), numbness in extremities, weakness in extremities, sensory changes, lack of coordination, difficulty walking, frequent falls, dizziness, confusion, Slurred speech present, difficulty communicating thoughts, seizure-like activity or involuntary movements Endo: Denies: polyuria, polydipsia or tired all the time Rich/Lymph: Denies: easy bruising or easy bleeding PFSH ED PFSH: Medical History (Updated 08/12/22 @ 12:16 by STEFFANY Salomon) Dyspnea Eczema GERD (gastroesophageal reflux disease) Hyperlipidemia Hypertension Hyponatremia Surgical History History of appendectomy History of cholecystectomy History of knee surgery History of shoulder surgery Family History Mother Maternal complication related to childbirth Social History Smoking and tobacco status: never smoked Alcohol intake: never Substance/Drug Use: never Physical Exam Const: COMMON NORMALS: no acute distress, patient oriented x3 and alert GENERAL APPEARANCE: cooperative ORIENTATION/CONSCIOUSNESS: Yes awake, Yes oriented to person, Yes oriented to place and Yes oriented to time HENMT: COMMON NORMALS: normocephalic and atraumatic HEAD & SCALP: normocephalic and atraumatic FACE & SINUS: normal facial exam MOUTH: Normal oral and palatal mucosa present THROAT: posterior oropharynx normal Eye: COMMON NORMALS: Equal, round and reactive pupils present, EOMs intact bilaterally, conjunctivae normal and no scleral icterus GENERAL EYE: appearance normal, both eyes and all related structures ALIGNMENT: Yes alignment normal PERIORBITAL: periorbital findings normal CONJUNCTIVA: Yes conjunctivae normal PUPIL: Yes Equal, round and reactive pupils present Neck/C-Spine: COMMON NORMALS: full ROM GENERAL: Yes normal visual inspection Lymph: LYMPHATIC: no lymphadenopathy noted Chest: COMMONS NORMALS: normal inspection of the chest Breast/axilla inspection: Yes no chest deformity, asymmetry, normal contours, no nodules, masses, tenderness Resp: COMMON NORMALS: normal respiratory effort, No retractions and No use of accessory muscles EFFORT & INSPECTION: Yes able to speak in complete sentences, Yes symmetric chest movement, Yes tachypneic, No respiratory distress, No labored, No stridor, No Actively coughing and No retractions AUSCULTATION: rhonchi and diminished lung sounds Cardio: COMMON NORMALS: regular rate, regular rhythm and Peripheral pulses 2+ throughout RATE: regular rate RHYTHM: regular rhythm PERIPHERAL PULSES: Peripheral pulses 2+ throughout GI: COMMON NORMALS: Normal to inspection, nondistended, normoactive bowel sounds present, Soft to palpation, non-tender and No hepatosplenomegaly present INSPECTION: Yes normal to inspection AUSCULTATION: Yes normoactive bowel sounds PALPATION: Yes Soft to palpation and Yes No hepatosplenomegaly present RECTAL EXAM: Yes deferred Extremity: COMMON NORMALS: normal to inspection GENERAL: Yes normal exam except as noted Neuro: COMMON NORMALS: patient oriented x3 SENSORIUM/ORIENTATION: Yes alert, Yes oriented to person, Yes oriented to place and Yes oriented to time CRANIAL NERVES: Yes CN normal except as noted Psych: COMMON NORMALS: mental status grossly normal, Normal thought process present, cooperative, activity/motor behavior normal, denies homicidal ideation and denies suicidal ideation THOUGHT PROCESS: Normal thought process present Skin: COMMON NORMALS: no rashes or lesions noted, no wounds and turgor normal GENERAL SKIN EXAM: no rashes or lesions noted and turgor normal Course Vital Signs: Vital signs: Vital Signs Temperature 98.2 F 08/12/22 09:14 Pulse Rate 85 08/12/22 09:58 Respiratory Rate 17 08/12/22 09:58 Blood Pressure 178/100 08/12/22 09:14 Pulse Oximetry 91 08/12/22 09:58 Oxygen Delivery Me thod Room Air 08/12/22 09:58 MDM - SOB/Dyspnea Medical Decision Making Patient underwent XR imaging, EKG, and laboratory evaluation. Chest x-ray revealed pneumonia and patient had a leukocytosis of 15,000. His EKG was normal called however his initial troponin was 33. 2-hour delta was -6.56. He is hyponatremic but this is likely due to his volume status. I would like him to follow-up with his primary care doctor on Sunday for further evaluation. In spite of this finding patient had no chest pain. He does have a heart score of 4-5 but after discussing with my attending we feel that it safe for him to discharge home with a low threshold to return here. I have advised the patient to return for failure to improve over the next 48 hours, worsening symptoms, or new symptoms. Patient is agreeable. He was treated here with doxycycline and will go home on a week's course twice daily. He is also going home with Flakito Marks. I have advised him to increase his fluids and he can use Mucinex. All questions answered Lab Data 08/12/22 09:23 08/12/22 09:23 Labs/Radiology: Radiology Impressions Chest X-Ray 08/12/22 09:20 IMPRESSION: Mild bibasilar opacity, more apparent on the left compared to 05/06/2020. Probable chronic scarring, atelectasis, or interstitial lung disease with increased atelectasis or superimposed infection, edema or aspiration in the left lower lobe. Laboratory Results WBC 15.7 10^3/uL (4.0-10.0) H 08/12/22 09: RBC 4.45 10^6/uL (4.1-5.3) 08/12/22 09: Hgb 13.8 g/dL (11.7-16.6) 08/12/22: Hct 40.7 % (42.0-52.0) L 08/12/22: MCV 91.5 fl (80-94) 08/12/22: MCH 31.0 pg (28.0-34.0) 08/12/22: MCHC 33.9 g/dL (30.0-36.0) 08/12/22: RDW 13.1 % (12.1-15.1) 08/12/22: Plt Count 364 10^3/cmm (130-400) 08/12/22 09: MPV 9.3 fL (7.4-10.4) 08/12/22 09: Neut % (Auto) 73.3 % 08/12/22: Lymph % (Auto) 13.3 % 08/12/22: [place] % (Auto) 10.7 % 08/12/22 09: Eos % (Auto) 1.4 % 08/12/22 09: Baso % (Auto) 0.4 % 08/12/22: Neut # (Auto) 11.49 10^3/uL (1.8-7.7) H 08/12/22 09: Lymph # (Auto) 2.1 10^3/uL (0.8-4.8) 08/12/22: [place] # (Auto) 1.7 10^3/uL (0.2-0.9) H 08/12/22 09:23 Eos # (Auto) 0.2 10^3/uL (0.0-0.8) 08/12/22 09: Baso # (Auto) 0.1 10^3/uL (0.0-0.1) 08/12/22 09: Nucleated RBC % (auto) 0 % 08/12/22: Nucleated RBCs # 0.0 /100WBC 08/12/22 09: Sodium 126 mmol/L (136-145) L 08/12/22 09: Potassium 3.7 mmol/L (3.5-5.1) 08/12/22 09: Chloride 90 mmol/L (98-107) L 08/12/22 09: Carbon Dioxide 21 mmol/L (22-29) L 08/12/22: Anion Gap 18.7 (5-19) 08/12/22: BUN 13 mg/dL (8-23) 08/12/22 09: Creatinine 1.0 mg/dL (0.7-1.2) 08/12/22 09: GFR Calculation Not Reportable 08/12/22: Glucose 106 mg/dL (65-115) 08/12/22 09: Calculated Osmolality 263 mOsm/kg (285-295) L 08/12/22: Calcium 8.7 mg/dL (8.5-10.5) 08/12/22: Total Bilirubin 0.8 mg/dL (0.15-1.2) 08/12/22: AST 28 U/L (0-40) 08/12/22: ALT 22 U/L (0-41) 08/12/22 09: Alkaline Phosphatase 107 U/L (40-130) 08/12/22 09:23 Troponin T Baseline 33 ng/L (0-15) H 08/12/22 09: Troponin T 120 Minute 26.44 ng/L (0-15) H 08/12/22 11:07 Delta Troponin T -6.56 ABS# (0-10) L 08/12/22 11:07 Total Protein 6.4 g/dL (6.6-8.7) L 08/12/22 09: Albumin 3.6 g/dL (3.5-5.2) 08/12/22 09:23 Globulin 2.8 g/dL (1.3-4.6) 08/12/22 09:23 Influenza Type A Ag negative (Negative) 08/12/22 09:29 Influenza Type B Ag negative (Negative) 08/12/22 09:29 SARS-CoV-2 Ag (Rapid) negative 08/12/22 09:29 Discharge Plan Discharge Patient Disposition: Home Clinical Impression: Hyponatremia, Pneumonia Condition: Stable Prescriptions: New benzonatate 100 mg capsule 100 mg PO BID Qty: 20 0RF doxycycline hyclate 100 mg tablet 100 mg PO BID 7 Days Qty: 14 0RF No Action Dupixent Syringe 300 mg/2 mL syringe 300 mg SUBCUT Q14D Ranexa 500 mg tablet extended release 12 hr 500 mg PO BID Qty: 180 3RF cetirizine 10 mg tablet 10 mg PO DAILY PRN (Reason: Allergy Symptoms) Qty: 90 3RF atorvastatin 40 mg tablet 40 mg PO DAILY Qty: 90 2RF omeprazole 20 mg capsule,delayed release(DR/EC) See Rx Instructions .ROUTE .COMPLEX Qty: 90 3RF Dose Instruction: TAKE 1 CAPSULE DAILY Rx Instructions: TAKE 1 CAPSULE DAILY olmesartan 20 mg tablet 20 mg PO DAILY Qty: 90 1RF fluticasone propionate 50 mcg/actuation spray,suspension 1 spray INTRANASAL DAILY PRN (Reason: Nasal Congestion) Qty: 48 5RF metoprolol tartrate 25 mg tablet 25 mg PO BID Qty: 180 3RF aspirin [Rosi Low Dose Aspirin] 81 mg Tablet,Delayed Release (Dr/Ec) 81 mg PO DAILY nitroglycerin 0.4 mg Tablet, Sublingual 0.4 mg sublingual Q5M PRN (Reason: Chest Pain) Qty: 20 0RF Colace 100 mg Capsule 200 mg PO DAILY PRN (Reason: Constipation) Discharge Orders: Discharge ED (Routine); Ordered 08/12/22 Ordered By: Rohit Foote Referrals: Edwin Kothari DO [Primary Care Provider] - Discharge Diet: Advance as tolerated Discharge Activity: Resume usual activity Patient Instructions: Benzonatate (By mouth) (Sanjay Caputo), Doxycycline (By mouth), Antitussive/Expectorant (By mouth), Pneumonia (ED), Pain Management Activity Restrictions/Additional Instructions: When she did return to the emergency department if you fail to improve, if your symptoms become worse, or if you develop new symptoms When she to follow-up with your doctor on Sunday for reevaluation of your complaints. I want you to take the antibiotics as prescribed Now I have provided you 1 prescription?Tessalon Perles and I have also recommended Mucinex. Tessalon Perles and Mucinex both have what is called antitussive properties. I do not want to taking both of these at the same time. Mucinex also has expectorant properties. This will help to get rid of the sputum. While taking either of these you need to make sure you are drinking plenty of water. No another finding on your evaluation is that you have a low sodium. Can be chronic in nature. I want you to follow-up with your primary care doctor on Sunday for reevaluation. Coding Level of Care Code ED [employer] Hcm Developer for Celso Garcia
[2022-08-12 09:36] LABS: Basophils # 0.1 10^3/uL (0.0-0.1); Basophils % 0.4 %; Eosinophils # 0.2 10^3/uL (0.0-0.8); Eosinophils % 1.4 %; Hematocrit 40.7 % (42.0-52.0); Hemoglobin 13.8 g/dL (11.7-16.6); Lymphocytes # 2.1 10^3/uL (0.8-4.8); Lymphocytes % 13.3 %; Mean Corpuscular HGB Conc 33.9 g/dL (30.0-36.0); Mean Corpuscular Volume 91.5 fl (80-94); Mean Platelet Volume 9.3 fL (7.4-10.4); Monocytes # 1.7 10^3/uL (0.2-0.9); Monocytes % 10.7 %; Neutrophils # 11.49 10^3/uL (1.8-7.7); Neutrophils % 73.3 %; Nucleated Red Blood Cells % 0 %; Platelet Count 364 10^3/cmm (130-400); Red Blood Count 4.45 10^6/uL (4.1-5.3); Red Cell Distribution Width 13.1 % (12.1-15.1); White Blood Count 15.7 10^3/uL (4.0-10.0)
[2022-08-12 09:53] LABS: SARS Covid-2 Antigen negative
[2022-08-12 09:53] LABS: Alanine Aminotransferase 22 U/L (0-41); Albumin Level 3.6 g/dL (3.5-5.2); Alkaline Phosphatase 107 U/L (40-130); Anion Gap 18.7 (5-19); Aspartate Amino Transferase 28 U/L (0-40); Blood Urea Nitrogen 13 mg/dL (8-23); Calcium 8.7 mg/dL (8.5-10.5); Carbon Dioxide 21 mmol/L (22-29); Chloride 90 mmol/L (98-107); Globulin 2.8 g/dL (1.3-4.6); Glucose 106 mg/dL (65-115); Osmolality Calculated 263 mOsm/kg (285-295); Potassium 3.7 mmol/L (3.5-5.1); Sodium 126 mmol/L (136-145); Total Bilirubin 0.8 mg/dL (0.15-1.2); Total Protein 6.4 g/dL (6.6-8.7)
[2022-08-12 09:54] LABS: Influenza A by IFA negative (Negative); Influenza B by IFA negative (Negative)
[2022-08-12 09:54] LABS: Troponin(5th) Baseline 33 ng/L (0-15)
[2022-08-12 09:58] VITALS: PULSE 85; RESP 17; O2SAT 91
[2022-08-12 11:19] VITALS: RESP 17; O2SAT 94
[2022-08-12 11:37] LABS: Troponin 5 2HR 26.44 ng/L (0-15); Troponin 5 2HR Delta -6.56 ABS# (0-10)
[2022-08-12] MEDS: doxycycline 100 mg Tablet PO (11:53)
--- NOTE | 2022-08-12 12:23 | ECG_ITS ---
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 Measurements Intervals [place] Rate: 86 P: 53 TN: 164 QRS: 44 QRSD: 88 T: 54 QT: 370 QTc: 444 Interpretive Statements SINUS RHYTHM WITH OCCASIONAL SUPRAVENTRICULAR PREMATURE COMPLEXES Compared to ECG 08/12/2022 09:19:40 No significant changes Electronically Signed On 08-12-2022 14:01:39 CDT by Del Mcintyre M.D. [id number]
[2022-08-12] MEDS: benzonatate 100 mg Capsule PO (12:26)
[2022-08-12 13:12] VITALS: RESP 17; O2SAT 93
== END 2022-08-12 13:14 | disposition home or self-care (01) ==
PROVIDERS: Emergency Provider Nurse Practitioner; PCP Family Medicine
DX: J18.9 Pneumonia, unspecified organism (principal); E87.1 Hypo-osmolality and hyponatremia
CPT/HCPCS: 71045; 80053; 84484; 85025; 87426; 87804; 93005; 99285

== ENCOUNTER → 2023-01-24 09:02 | Outpatient (BNVA) | payer MEDICARE, OTHER, SELFPAY | PROVIDERS: PCP Family Medicine; Visit Provider Family Medicine | DX: Z12.5 Encounter for screening for malignant neoplasm of prostate (principal); I25.10 Atherosclerotic heart disease of native coronary artery without angina pectoris; I73.9 Peripheral vascular disease, unspecified; E87.1 Hypo-osmolality and hyponatremia; E78.5 Hyperlipidemia, unspecified; I10 Essential (primary) hypertension | CPT/HCPCS: 80053; 80061; 83735; 85025; G0103 ==

== ENCOUNTER → 2023-02-26 08:01 | Outpatient (BNVA) | payer MEDICARE, OTHER, SELFPAY | PROVIDERS: PCP Family Medicine; Visit Provider Family Medicine | DX: E87.1 Hypo-osmolality and hyponatremia (principal) | CPT/HCPCS: 80053 ==

== ENCOUNTER → 2023-05-03 14:22 | Outpatient (BNVA) | payer MEDICARE, OTHER, SELFPAY | PROVIDERS: PCP Family Medicine; Visit Provider Internal Medicine | DX: I10 Essential (primary) hypertension (principal); E78.2 Mixed hyperlipidemia; I25.10 Atherosclerotic heart disease of native coronary artery without angina pectoris | CPT/HCPCS: 99214 ==

== ENCOUNTER → 2023-12-27 09:40 | Outpatient (BNVA) | payer MEDICARE, OTHER, SELFPAY | PROVIDERS: PCP Family Medicine; Visit Provider Internal Medicine | DX: I10 Essential (primary) hypertension (principal); I73.9 Peripheral vascular disease, unspecified; I25.10 Atherosclerotic heart disease of native coronary artery without angina pectoris; E78.2 Mixed hyperlipidemia; Z87.891 Personal history of nicotine dependence | CPT/HCPCS: 99214 ==

== ENCOUNTER 2024-01-02 10:47 | Outpatient (CLI) | payer MEDICARE, OTHER, SELFPAY ==
--- NOTE | 2024-01-02 11:00 | USCV_ITS ---
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 No Doppler flow signals in the dorsalis pedis artery. Change of the Doppler waveform at the level of the SFA on the right side with monophasic and continuous waveform in the posterior tibial artery. Monophasic waveforms throughout the left lower extremity. Resting EDEL of 0.7 on the right . On the left side, the anterior tibial artery was found to be noncompressible. EDEL was 0.6 with respect to the posterior artery. CONCLUSIONS 1. Abnormal resting EDEL on the right side, suggesting moderate peripheral artery disease. 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 2. Noncompressible artery in the left ankle. 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
== END 2024-01-02 10:48 | disposition home or self-care (01) ==
LOC: RAD 10:47
PROVIDERS: PCP Family Medicine; Visit Provider Internal Medicine
DX: M79.604 Pain in right leg (principal); M79.605 Pain in left leg
CPT/HCPCS: 93925

== ENCOUNTER → 2024-01-03 09:25 | Outpatient (BNVA) | payer MEDICARE, OTHER, SELFPAY | PROVIDERS: PCP Family Medicine; Visit Provider Family Medicine | DX: E87.1 Hypo-osmolality and hyponatremia (principal); E78.2 Mixed hyperlipidemia | CPT/HCPCS: 80053; 80061; 85025 ==

== ENCOUNTER 2024-02-11 08:01 | Outpatient (CLI) | payer MEDICARE, OTHER, SELFPAY ==
[2024-02-11 08:54] LABS: INR 1.03 (0.83-1.21); Prothrombin Time (Patient) 13.8 Seconds (12.0-15.1)
[2024-02-11 08:58] LABS: Anion Gap 12.4 (5-19); Basophils # 0.1 10^3/uL (0.0-0.1); Basophils % 0.7 %; Blood Urea Nitrogen 15 mg/dL (8-23); Calcium 7.8 mg/dL (8.5-10.5); Carbon Dioxide 27 mmol/L (22-29); Chloride 98 mmol/L (98-107); Eosinophils # 0.3 10^3/uL (0.0-0.8); Eosinophils % 3.3 %; Glucose 117 mg/dL (65-115); Hematocrit 40.2 % (37-53); Lymphocytes # 1.9 10^3/uL (0.8-4.8); Lymphocytes % 25.5 %; Mean Corpuscular HGB Conc 33.3 g/dL (30-55); Mean Corpuscular Hemoglobin 31.3 pg (27-33); Mean Corpuscular Volume 93.9 fl (82-101); Mean Platelet Volume 9.3 fL (7.4-10.4); Monocytes # 0.6 10^3/uL (0.2-0.9); Neutrophils # 4.73 10^3/uL (1.8-7.7); Nucleated Red Blood Cells % 0 %; Osmolality Calculated 278 mOsm/kg (285-295); Platelet Count 291 10^3/cmm (157-399); Potassium 4.4 mmol/L (3.5-5.1); Red Blood Count 4.28 10^6/uL (3.85-5.65); Red Cell Distribution Width 13.7 % (12.1-15.1); Sodium 133 mmol/L (136-145); White Blood Count 7.62 10^3/uL (3.29-11.43)
== END 2024-02-11 08:02 | disposition home or self-care (01) ==
PROVIDERS: PCP Family Medicine; Visit Provider Internal Medicine
DX: I10 Essential (primary) hypertension (principal); R58 Hemorrhage, not elsewhere classified
CPT/HCPCS: 36415; 80048; 85025; 85610

== ENCOUNTER 2024-02-14 11:25 | Observation (INO) | payer MEDICARE, OTHER, SELFPAY ==
[2024-02-14] VITALS (12 sets, daily range): BP systolic 146–186; BP diastolic 68–88; PULSE 60–73; RESP 16–20; TEMP 36.7; O2SAT 94–97; BMI 30.5
[2024-02-14 07:53] LABS: Basophils # 0.1 10^3/uL (0.0-0.1); Basophils % 0.6 %; Eosinophils # 0.3 10^3/uL (0.0-0.8); Eosinophils % 3.3 %; Hematocrit 41.6 % (37-53); Lymphocytes # 1.8 10^3/uL (0.8-4.8); Lymphocytes % 21.7 %; Mean Corpuscular HGB Conc 32.7 g/dL (30-55); Mean Corpuscular Hemoglobin 30.4 pg (27-33); Mean Corpuscular Volume 93.1 fl (82-101); Mean Platelet Volume 9.3 fL (7.4-10.4); Monocytes # 0.6 10^3/uL (0.2-0.9); Monocytes % 7.1 %; Neutrophils # 5.67 10^3/uL (1.8-7.7); Neutrophils % 66.9 %; Nucleated Red Blood Cells % 0 %; Platelet Count 295 10^3/cmm (157-399); Red Blood Count 4.47 10^6/uL (3.85-5.65); Red Cell Distribution Width 13.8 % (12.1-15.1); White Blood Count 8.47 10^3/uL (3.29-11.43)
[2024-02-14] MEDS: diphenhydrAMINE 50 mg Capsule PO (08:03)
[2024-02-14 08:13] LABS: Anion Gap 12.6 (5-19); Blood Urea Nitrogen 15 mg/dL (8-23); Carbon Dioxide 28 mmol/L (22-29); Chloride 96 mmol/L (98-107); Creatinine Clr Calc Pharmacy 51.0883; Glucose 105 mg/dL (65-115); Osmolality Calculated 275 mOsm/kg (285-295); Potassium 4.6 mmol/L (3.5-5.1); Sodium 132 mmol/L (136-145)
--- NOTE | 2024-02-14 08:30 | XACV_ITS ---
Ht: 178 cm Wt: 97 kg BSA: 2.21 m2 Any Known Allergies: Other Gender: Male : 1940 Exam Type: Invasive Peripheral Vascular Procedure(s): Procedure Description: Peripheral Cath Diagnostic Procedure Procedure Description: Abdominal aortic angiography Procedure Description: Lower extremities' angiography Exam Priority: Routine Abdominal Diagnostic Findings Distal abdominal aorta is patent. Lower Extremity Diagnostic Findings INDICATION: Severe lifestyle limiting claudication. Left lower extremity: Left common iliac artery is patent. Left external iliac artery is patent. Left common femoral artery is patent. Left profunda artery is patent. Left SFA has a proximal subtotal occlusion with heavy calcification. Distal SFA to popliteal artery is totally occluded with collaterals from profunda artery. Severe calcified stenosis of distal popliteal artery and TP trunk. Ostial anterior tibial artery is subtotally occluded. Peroneal artery is patent. Posterior tibial artery is patent however has moderate to severe mid segment stenosis.. Right lower extremity findings: Right common iliac artery is patent. Right external iliac artery is patent. Right common femoral artery is patent. Right profunda artery is patent. Right SFA has ostial subtotal occlusion with heavy calcification. Multiple serial severe stenosis. Distal SFA is totally occluded with collateral flow reconstituting popliteal artery. Distal popliteal artery just above takeoff of the anterior tibial artery is subtotally occluded. Anterior tibial artery is totally occluded. Posterior tibial artery is patent. Peroneal artery has diffuse disease. . Lower Extremity Interventional Findings Procedure detail: After diagnostic images were obtained, we attempted to cross the left SFA subtotal occlusion with Glidewire. However it could not cross secondary to very severe calcification. After multiple attempts, we decided to abort and discuss referral to vascular surgery vs medical therapy. Patient left the lab clerk in a stable condition. Conclusions Severe bilateral peripheral artery disease. Unsuccessful attempt at revascularization of left lower extremity. Recommendations We discussed all options including referral to vascular surgery versus medical therapy. Patient could not tolerate cilostazol in the past. He is willing to attempt to restart taking it at 50 mg once a day. Will also exercise. If symptoms improve, can continue with medical therapy. However if lifestyle limiting claudication continues, will refer to vascular surgery. Hemodynamic Data Phase:Rest AO : 170.0 / 67.0 ( 108.0 ) @ 9:42:00 AM 131.0 / 59.0 ( 85.0 ) @ 10:07:00 AM Access Site Site: Right Femoral artery Sheath Size: 6 Fr Hemost... Method: Mynx Hemost... Success: Successful Procedure Details Findings Procedure Consent Obtained. Admit Source: Out Patient. Pre-Procedure Time Out. Identified patient by full name and date of as verbalized by the patient/guarantor. Does the consent match the physician's order: Yes. Accurate & Complete Informed Consent: Yes. Inpatient/Outpatient History & Physical on Chart: Yes. If H&P is completed, is and addenduem needed: No; If yes, is the addendum complete: N/A. Visualize and Verify Site with Patient/Guarantor: N/A. Relevant Radiology Images available: N/A. The risks, benefits, and alternatives of sedation and/or procedure were discussed by physician. The patient agrees to continue. Procedure started. Current diagnosis: Lifestyle limiting claudication. PERRLA. 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 Lungs clear x 5 lobes. IV Site on Arrival: 20 gauge in the left anticubital. IV Fluids: 0.9% NaCl at 100ml/hr. 250 mL infused prior to lab clerk. Pre Procedural Pulses: bilateral posterior tibial was Doppled. Pre Procedural Pulses: right dorsalis pedis was Doppled. Pre Procedural Pulses: left dorsalis pedis was Absent. Pre Procedural Pulses: bilateral radial was 3+. Oxygen started at 2liters/min via nasal canula. bilateral groins was prepped with chloroprep then draped in the usual sterile fashion. Physician notified. Baseline sample Acquired. HR: 75 BPM. Physician arrived. Physician scrubbed in. Immediate Pre-Procedure Time Out. Correct Patient: Yes; Correct Procedure: Yes; Correct Site: Yes; Correct Patient Position: Yes; Correct Supplies: Yes; Dried Flammable Prep: Yes; Blood Products Available: No;. Ultrasound obtained to assist with arterial access. Lidocaine 1% infiltrated to the right groin. Arterial access obtained with micropuncture set. A 5Fr UF catheter in over wire. Abdominal aortogram performed in AP @ 10 mL/sec for a total of 30 mL. Glidewire in through Uf catheter. UF advanced to left iliac. Wire out. Left common iliac selected and arteriogram with runoff performed @ 10 mL/sec for a total of 30 mL. DSA performed of popliteal to better visualize the distal vessels. DSA performed of popliteal to better visualize the distal vessels. DSA performed of popliteal to better visualize the distal vessels. Glidewire advanced through UF catheter. Glidewire advanced to common femoral. UF catheter out over glidewire. 6fr short sheath exchanged for 6fr 45cm flexor sheath over glidewire. Seeker catheter in over glidewire. Unable to advance glidewire and seeker catheter to left SFA after multiple attempts. Glidewire out. Left common femoral selected and arteriogram with runoff performed @ 10 mL/sec for a total of 30 mL. Add inventory: 6fr 11cm sheath. 6fr 45cm flexor sheath exchanged for new 6fr 11cm sheath over standard wire. Sheath injected in Right common femoral artery and runoff performed. A Right femoral angiogram was performed to determine safe placement of closure device. A Mynx was successful obtaining hemostatsis at the Right Femoral artery insertion site. LOT # [id number] exp 12-24-2025. Physician scrubbed out. Post Procedure: Pulses reassessed and unchanged. PERRLA. 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 No VTE prophylaxis required. Medication's Wasted: Lidocaine 1% = 10 mL. Medication's Wasted: Heparin = 3000 units. Total IV fluids: 75 mL. Post-op diagnosis: Severe Bilateral PAD, unsuccessful crossing lesion. Complications: None. Estimated blood loss: 5mL-10mL. Responsiveness - Normal response to verbal stimuli; alert and oriented, PERRLA. Airway - Unaffected, no intervention required; spontaneous ventilation. Circulation: W/N/L, pulses unchanged. Nausea/Vomiting: No. Procedure completed. Patient transferred by bed to CPRU. Vital chart was stopped. Procedure Medications Start: 9:29 AM Stop: 9:29 AM Medication: Versed Amount: 1 mg Route: I.V. Start: 9:30 AM Stop: 9:30 AM Medication: Fentanyl Amount: 50 mcg Route: I.V. Start: 9:52 AM Stop: 9:52 AM Medication: Versed Amount: 1 mg Route: I.V. Start: 9:52 AM Stop: 9:52 AM Medication: Fentanyl Amount: 50 mcg Route: I.V. Start: 9:56 AM Stop: 9:56 AM Medication: Heparin Amount: 3000 units Route: I.V. I, the attending physician, have reviewed and verified all procedure medications. Yes, all medications given per verbal order History/Risk Factors Hypertension: Yes Dyslipidemia: Yes Peripheral Arterial Disease (PAD): No Obesity: No Renal Disease: No Tobacco Use: Former Prior Interventions PCI: No CABG: No Valve Surgery: No Report Signatures Finalized by Del Mcintyre MD on 02/24/2024 01:54 PM
--- NOTE | 2024-02-14 09:15 | P.HP_ITS ---
Same Day Surgery H&P Indication for Procedure/HPI DATE OF PROCEDURE: February 14, 2024 CHIEF COMPLAINT/INDICATIONFOR SURGICAL PROCEDURE: Severe lifestyle limiting claudication PREOP DIAGNOSIS: Severe lifestyle limting claudication PLANNED PROCEDURE: Operation Date: 02/14/24 08:30 Proposed Procedures p Peripheral Diagnostic - Periph Angio Bilat(Bilateral) - Del Mcintyre M.D Possible percuteneous intervention 83-year-old man with past medical history of coronary artery disease who has been having severe lifestyle limiting claudication of bilateral lower extremities. He could not tolerate medical therapy with cilostazol. EDEL are abnormal bilaterally with possible multilevel peripheral artery disease. Plan for peripheral angiogram with possible intervention. He has CKD. Medications/Allergies* Home Medications Medication Instructions Recorded Confirmed Type aspirin 81 mg tablet,delayed 81 mg PO DAILY 12/28/19 02/14/24 History release (Rosi Low Dose Aspirin) dupilumab 300 mg/2 mL subcutaneous 300 mg SUBCUT Q14D 01/14/20 02/14/24 History syringe (Dupixent) Allergies/Adverse Reactions Allergy/AdvReac Type Severity Reaction Status Date / Time alfuzosin [From Uroxatral] Allergy ALGY-Rash Verified 02/13/24 07:40 celecoxib [From Celebrex] Allergy ALGY-Rash Verified 02/13/24 07:40 Current Medications: Generic Name Dose Route Start Last Admin Trade Name Freq PRN Reason Stop Dose Admin Sodium Chloride 1,000 mls @ 50 mls/hr 02/14/24 07:30 02/14/24 07:27 Sodium Chloride 0.9% IV 02/15/24 03:29 Not Given .Q20H ONE Pertinent History/Comorbid Conditions* Medical History (Updated 01/03/24 @ 09:04 by Boni Dudley MD) Eczema Dyspnea Hyponatremia GERD (gastroesophageal reflux disease) Hyperlipidemia Hypertension Surgical History (Updated 12/28/19 @ 17:52 by Jonah King MD) History of shoulder surgery History of cholecystectomy History of appendectomy History of knee surgery Family History (Updated 01/01/20 @ 20:03 by Shad Raza MD) Maternal complication related to childbirth Mother Social History Smoking and tobacco/nicotine status: former use of tobacco/nicotine Alcohol intake: never Substance/Drug Use: never Pertinent Exam Findings alert, oriented x 3, clear to auscultation bilaterally and regular rate & rhythm Conscious Sedation Assessment PATIENT ASSESSED PRIOR TO SEDATION, WITH NO CHANGE NOTED: Yes AIRWAY EVAL/ANESTHESIA PLAN: normal airway, ASA III, Local Anesthesia, Risks, benefits & alternatives of sedation and/or procedure discussed and Patient agr ees to continue as planned Recommendations Surgery/Procedure today (Peripheral angiogram with possible percutaneous intervention) Coding Level of Care Code Acute Code for [facility] Fwd
--- NOTE | 2024-02-14 11:27 | PC.NURSE ---
Patient transferred to [facility] from cardiac cath tech with a right groin, mynx closure at 1115. NS to run at 100ml/hr until 1630. Patient can get up at 1430.
== END 2024-02-14 17:10 | disposition home or self-care (01) ==
LOC: CSU 11:26
PROVIDERS: Admitting Provider Internal Medicine; PCP Family Medicine; Visit Provider Internal Medicine
DX: I73.9 Peripheral vascular disease, unspecified (principal); I70.92 Chronic total occlusion of artery of the extremities; I10 Essential (primary) hypertension; E78.5 Hyperlipidemia, unspecified; Z87.891 Personal history of nicotine dependence; K21.9 Gastro-esophageal reflux disease without esophagitis
CPT/HCPCS: 36415; 75625; 75716; 80048; 85025; 96365; 96367; 99152; 99153; C1760; C1769; C1887; C1894; G0269; G0378; J1644; J2250; J3010; J7030; Q0163; Q9967

== ENCOUNTER → 2024-02-19 14:48 | Outpatient (BNVA) | payer MEDICARE, OTHER, SELFPAY | PROVIDERS: PCP Family Medicine; Visit Provider Nurse Practitioner Family | DX: I10 Essential (primary) hypertension (principal); E78.2 Mixed hyperlipidemia | CPT/HCPCS: 36415; 80048; 85025; 99213 ==

== ENCOUNTER → 2024-05-22 09:35 | Outpatient (BNVA) | payer MEDICARE, OTHER, SELFPAY | PROVIDERS: PCP Family Medicine; Visit Provider Internal Medicine | DX: I73.9 Peripheral vascular disease, unspecified (principal); I10 Essential (primary) hypertension; E78.2 Mixed hyperlipidemia; I25.10 Atherosclerotic heart disease of native coronary artery without angina pectoris; Z87.891 Personal history of nicotine dependence | CPT/HCPCS: 99214 ==

== ENCOUNTER → 2024-11-20 14:16 | Outpatient (BNVA) | payer MEDICARE, OTHER, SELFPAY | PROVIDERS: PCP Family Medicine; Visit Provider Internal Medicine | DX: I73.9 Peripheral vascular disease, unspecified (principal); I12.9 Hypertensive chronic kidney disease with stage 1 through stage 4 chronic kidney disease, or unspecified chronic kidney disease; N18.9 Chronic kidney disease, unspecified; E78.5 Hyperlipidemia, unspecified; I25.10 Atherosclerotic heart disease of native coronary artery without angina pectoris; I47.10 Supraventricular tachycardia, unspecified; Z79.82 Long term (current) use of aspirin; Z87.891 Personal history of nicotine dependence | CPT/HCPCS: 99214 ==

== ENCOUNTER → 2025-01-14 08:50 | Outpatient (BNVA) | payer MEDICARE, OTHER, SELFPAY | PROVIDERS: PCP Family Medicine; Visit Provider Family Medicine | DX: Z13.6 Encounter for screening for cardiovascular disorders (principal) | CPT/HCPCS: 80053; 80061; 84439; 84443; 85025 ==